=== PATIENT | female | born 1995 | race Caucasian/White ===

== ENCOUNTER 2019-05-18 18:13 | Inpatient (IN) ==
--- OUTSIDE RECORDS SUMMARY | 2019-05-18 18:19 | External Medical Summary | Continuity of Care Document ---
:1995 Author Name Mohamud Cortez, Provider Address Unavailable Unavailable , Care Team Providers Name Role Phone Marilyn Davis Unavailable [email or web address] Unavailable Unavailable Problems Active medical history not documented Allergies and Adverse Reactions Allergy history not documented Medications Medications not documented Procedures Procedures not documented Immunizations Immunizations not documented Plan of Treatment Planned Observations Planned Goals not documented Results No Known Results Results not documented Encounters Appointment; [facility], Nursing Station 11-May-2018 15:30 Encounter Diagnosis: Problem not documented Appointment; Marilyn Schilling CRNP 11-May-2018 16:00 Encounter Diagnosis: Problem not documented
[2019-05-18] MEDS ORDERED: OXYTOCIN 30 UNITS/500 ML BAG IV PRN (19:14)
[2019-05-18] MEDS ORDERED: DINOPROSTONE 10 MG INSERT PV ONE (19:30)
[2019-05-18 19:45] LABS: Hematocrit (blood only) 31.2 % (37-47); Mean Corpuscular Hemoglobin 25.4 pg (25-34); Mean Corpuscular Volume 79.4 fL (80-100); Mean Platelet Volume 9.8 fL (7.4-10.4); Platelet Count 211 K/uL (130-400); RDW Coefficient of Variation 15.2 % (11.5-14.5); RDW Standard Deviation 44.2 fL (36.4-46.3); Red Blood Count 3.93 M/uL (4.2-5.4); White Blood Count 10.95 K/uL (4.8-10.8)
[2019-05-18] MEDS: LACTATED RINGER'S 1,000 ML IV PRN (20:00)
[2019-05-18 20:12] LABS: Mean Corpuscular Hgb Conc 32.1 g/dL (32-36)
[2019-05-18] MEDS: BUTORPHANOL TARTRATE 1 MG/ML VIAL IV PRN (23:02)
[2019-05-19] MEDS: BUTORPHANOL TARTRATE 1 MG/ML VIAL IV PRN ×2 (04:25→15:49)
[2019-05-19] MEDS ORDERED: ONDANSETRON INJ 2 MG/ML 2 ML VIAL ONE (08:49)
[2019-05-19] MEDS: LACTATED RINGER'S 1,000 ML IV PRN ×2 (08:58→15:49)
[2019-05-19] MEDS: ONDANSETRON INJ 2 MG/ML 2 ML VIAL IV PRN ×2 (08:59→18:24)
--- NOTE | 2019-05-19 10:47 | Obstetrical Progress Note ---
Date of Service May 19, 2019 Physical Exam Genitourinary: OB Exam Abdomen: + irregular contractions Manual OB Exam: + cervical dilation 1 cm, + cervical effacement 50% and + station high OB Exam Monitor Tracing: + external uterine monitor used, + category I and + normal FHT variability will ambulate possible PO cytotec later for ripening Results & Data Vital Signs (Past 12 Hours) Vital Signs Temp Pulse Resp BP Pulse Ox 05/19/19 07:43 36.8 C 16 05/19/19 07:30 100 H 102/51 L 05/19/19 07:24 101 H 99 05/19/19 07:19 98 H 99 05/19/19 07:14 102 H 99 05/19/19 07:09 98 H 99 05/19/19 07:04 105 H 98 05/19/19 06:59 100 H 99 05/19/19 06:54 104 H 99 05/19/19 06:49 105 H 99 05/19/19 06:44 110 H 100 05/19/19 06:39 101 H 99 05/19/19 06:34 110 H 100 05/19/19 06:29 103 H 99 05/19/19 06:24 95 H 99 05/19/19 06:19 103 H 99 05/19/19 06:14 96 H 98 05/19/19 06:09 100 H 98 05/19/19 06:04 114 H 99 05/19/19 05:59 97 H 99 05/19/19 05:54 115 H 98 05/19/19 05:49 107 H 98 05/19/19 05:44 102 H 98 05/19/19 05:39 107 H 98 05/19/19 05:34 103 H 98 05/19/19 05:29 113 H 99 05/19/19 05:24 108 H 98 05/19/19 05:19 115 H 98 05/19/19 05:14 101 H 98 05/19/19 05:09 110 H 97 05/19/19 05:04 114 H 97 05/19/19 04:59 100 H 97 05/19/19 04:54 100 H 97 05/19/19 04:49 104 H 97 05/19/19 04:44 102 H 97 05/19/19 04:39 104 H 98/51 L 98 05/19/19 04:34 103 H 97 05/19/19 04:29 107 H 97 05/19/19 04:26 104 H 101/52 L 05/19/19 04:24 99 H 99 05/19/19 04:19 103 H 98 05/19/19 04:14 91 H 100 05/19/19 04:09 127 H 99 05/19/19 04:04 106 H 99 05/19/19 04:03 90 116/68 05/19/19 04:02 36.6 C 18 05/19/19 03:59 89 100 19 03:54 98 H 100 05/19/19 03:49 93 H 100 05/19/19 03:43 98 H 99 05/19/19 03:38 112 H 99 05/19/19 03:33 129 H 100 05/19/19 03:28 115 H 99 05/19/19 03:23 113 H 99 05/19/19 03:18 104 H 99 05/19/19 03:13 107 H 99 05/19/19 03:08 103 H 99 05/19/19 03:03 108 H 98 05/19/19 02:58 108 H 98 05/19/19 02:53 103 H 98 19 02:48 105 H 98 05/19/19 02:43 97 H 98 05/19/19 02:38 100 H 98 19 02:33 96 H 98 05/19/19 02:28 102 H 98 05/19/19 02:23 98 H 98 19 02:18 103 H 98 05/19/19 02:13 96 H 98 19 02:08 103 H 98 19 02:03 101 H 98 19 01:58 106 H 98 19 01:53 101 H 98 19 01:48 98 H 100 19 01:43 86 99 19 01:38 91 H 98 19 01:33 98 H 99 19 01:28 95 H 97 19 01:23 99 H 99 19 01:18 97 H 99 19 01:13 107 H 100 19 01:08 97 H 100 19 01:03 95 H 100 12/19/19 00:58 98 H 100 /19/19 00:53 101 H 99 19/19 00:48 93 H 100 /19/19 00:43 91 H 99 19/19 00:38 88 99 19/19 00:33 94 H 99 05/19/19 00:28 97 H 99 19/19 00:23 94 H 99 05/19/19 00:18 100 H 98 05/19/19 00:13 93 H 99 19/19 00:08 92 H 99 19/19 00:03 97 H 99 18/19 23:58 96 H 99 18/19 23:53 97 H 98 18/19 23:48 98 H 98 18/19 23:43 97 H 99 18/19 23:38 97 H 98 18/19 23:33 108 H 98 /18/19 23:28 106 H 99 /18/19 23:25 100 H 113/64 /18/19 23:23 99 H 98 /18/19 23:18 107 H 99 /18/19 23:13 100 H 98 12/18/19 23:08 104 H 99 /18/19 23:07 93 H 113/60 /18/19 23:06 37.0 C 18 /18/19 23:03 106 H 99 /18/19 22:58 88 99 /18/19 22:54 97 H 117/60 12/18/19 22:53 88 98
[2019-05-19] MEDS ORDERED: DINOPROSTONE 10 MG INSERT PV ONE (20:10)
--- NOTE | 2019-05-19 20:16 | Obstetrical Progress Note ---
Date of Service May 19, 2019 Physical Exam Genitourinary: OB Exam Abdomen: + vertex and + irregular contractions Manual OB Exam: + cervical dilation 1 cm, + cervical effacement 50% and + station high OB Exam Monitor Tracing: + external FHT monitor used, + external uterine monitor used, + category I and + normal FHT variability Cervidil 10 mg placed vaginally Results & Data Vital Signs (Past 12 Hours) Vital Signs Temp Pulse Resp BP 05/19/19 18:30 20 05/19/19 18:00 36.6 C 20 05/19/19 17:59 105 H 113/57 L 05/19/19 17:30 20 05/19/19 15:55 95 H 110/55 L 05/19/19 14:49 36.7 C 100 H 20 115/65 05/19/19 12:04 16 05/19/19 10:45 36.7 C 105 H 24 127/66
[2019-05-20] MEDS: LACTATED RINGER'S 1,000 ML IV PRN ×4 (00:23→15:00)
[2019-05-20] MEDS: miSOPROStoL 50 MCG TAB PO SCH ×2 (06:57→14:44)
[2019-05-20] MEDS: VENLAFAXINE HCL XR 75 MG CAPXR PO SCH (08:35)
--- NOTE | 2019-05-20 09:14 | Obstetrical Progress Note ---
Date of Service May 20, 2019 Subjective Patient is seen and examined She is known to me from office I have send her to L&D for IOL on 05/18 for borderline BPP 6/10 for 2 days She received 2 Cervidil's since then She feels ctxs on and off, pain is 5-6 /10 No LOF/VB +FM Reviewed her records GBS negative On Effexor 75 mg for depression h/o chlamydia in 1st trimester, treated KINJAL negative x2 No h/o HSV/ GC She seems painful VE:Cervidil was in lower vagina removed, 3/ 60%/ -2, bulging tight bag, AROM'ed FHR categ I [place] ctxs q 1-4 min Plan to monitor closely Epidural for pain, when she desires Results & Data Vital Signs (Past 12 Hours) Vital Signs Temp Pulse Resp BP 05/20/19 08:34 36.5 C 18 05/20/19 07:44 16 05/20/19 07:00 16 05/20/19 05:15 36.6 C 100 H 16 116/55 L 05/20/19 02:53 36.7 C 111 H 16 98/47 L 05/20/19 00:22 36.9 C 111 H 16 120/56 L 05/19/19 22:00 20 05/19/19 21:30 22
[2019-05-20] MEDS ORDERED: ePHEDrine sulfate 50 MG/ML AMP ONE (09:34)
[2019-05-20] MEDS ORDERED: fentaNYL citrate 100 MCG/2 ML VIAL ONE (09:34)
[2019-05-20] MEDS ORDERED: BUPIVACAINE 0.25% 30 ML VIAL ONE (09:34)
[2019-05-20] MEDS ORDERED: fentaNYL 2MCG/ML ROPIV 1.25MG/ML 100 ML BAG EPI ONE (09:35)
[2019-05-20] MEDS ORDERED: ePHEDrine sulfate 50 MG/ML AMP IV PRN (10:21)
[2019-05-20] MEDS ORDERED: NALOXONE HCL 1 MG in SODIUM CHLORIDE 0.9% 1000ML 1,000 ML IV PRN (10:21)
[2019-05-20] MEDS ORDERED: NALBUPHINE HCL INJ 10 MG/ML AMP IV PRN (10:21)
[2019-05-20] MEDS ORDERED: ONDANSETRON INJ 2 MG/ML 2 ML VIAL IV PRN (10:21)
[2019-05-20] MEDS ORDERED: PROMETHAZINE HCL 6.25 MG in SODIUM CHLORIDE 0.9% 50 ML IV PRN (10:21)
[2019-05-20] MEDS ORDERED: NALOXONE HCL 0.4 MG/1 ML VIAL/CARP IV PRN (10:21)
[2019-05-20] MEDS ORDERED: fentaNYL 2MCG/ML ROPIV 1.25MG/ML 100 ML BAG EPI PRN (10:21)
[2019-05-20] MEDS ORDERED: DiphenhydrAMINE HCL 50 MG/ML VIAL IV PRN (10:21)
--- NOTE | 2019-05-20 10:21 | Anesthesiology Consultation ---
Date of Service May 20, 2019 Assessment & Plan (1) Encounter for pre-operative examination: Chart Review Chart Review: Patient NOT seen in Pre Admission Testing and Acceptable Risk for Labor Epidural Consults Requested none ASA ASA2 Proposed Anesthesia Anesthesia Type: Labor Epidural Risk / Benefits Reviewed With: PT / POA / Parent / Guardian, Accepts Plan and Informed Consent Obtained History Height/Weight Height: 5 ft 5 in Weight: 58.967 kg Allergies Allergy/AdvReac Type Severity Reaction Status Date / Time No Known Allergies Allergy Verified 05/18/19 18:52 Medications Home Medications Medication Instructions Recorded Confirmed Last Taken PNV cmb#95-ferrous fumarate-FA 1 tab PO DAILY 05/18/19 05/18/19 05/18/19 07:00 [] venlafaxine 75 mg PO QAM 05/18/19 05/18/19 05/18/19 07:00 Active Medications Generic Name Dose Route Start Last Admin Trade Name Freq PRN Reason Stop Dose Admin Butorphanol Tartrate 1 mg 05/18/19 19:43 05/19/19 15:49 Stadol IV 06/17/19 19:42 1 mg Q2H PRN Administration Pain Lactated Ringer's 1,000 mls @ 125 mls/hr 05/18/19 19:14 05/20/19 10:04 Lr IV 05/20/19 19:13 999 mls/hr .Q8H PRN Administration L&D Protocol Protocol Misoprostol 50 mcg 05/19/19 14:30 05/20/19 06:57 Cytotec PO 06/18/19 14:29 Not Given Q4H ELISSA Ondansetron HCl 4 mg 05/19/19 08:44 05/19/19 18:24 Zofran IV 06/18/19 08:43 4 mg Q4H PRN Administration Nausea Venlafaxine HCl 75 mg 05/20/19 09:00 05/20/19 08:35 Effexor Extended Release PO 06/19/19 08:59 75 mg DAILY ELISSA Administration Past Medical History Medical History Depression Migraines Exercise / Class Metabolic Activity II 4-5 Yardwork/Stairs/Walk up hill Past Anesthesia History No Hx of Anesthesia Complications and No Family Hx of Anesthesia Complications History of PONV No Hx of PONV and No Hx of Motion Sickness Social History Smoking Status: Never smoker Do You Dip or Chew Tobacco: No Hx Alcohol Use: No Hx Substance Use: No substance use type: does not use Physical Exam Vital Signs Last Vital Signs Temp 36.5 C 05/20/19 08:34 Pulse 108 H 05/20/19 10:20 Resp 18 05/20/19 08:34 BP 126/60 05/20/19 10:20 Pulse Ox 96 05/20/19 10:19 ENMT Mouth: no dentition abnormality Thyromental Distance: > or= 3.5 Finger Breadths Mallampati Class: II Neck normal visual inspection Respiratory normal respiratory effort Auscultation: lungs clear to auscultation bilaterally Cardiovascular Rate/Rhythm: regular rate and regular rhythm Psychiatric Orientation: alert Testing Laboratory Results 05/18/19 19:25
[2019-05-20] MEDS ORDERED: OXYTOCIN 30 UNITS/500 ML BAG IV PRN ×2 (10:28→16:00)
--- NOTE | 2019-05-20 13:49 | Obstetrical Progress Note ---
Date of Service May 20, 2019 Subjective Late entry from 1330 Patient is comfortable now, received epidural VE: 7/ 70%/ 0, sagittal suture transverse FHR category I [place] ctxs q 2-3 min Continue to monitor closely Results & Data Vital Signs (Past 12 Hours) Vital Signs Temp Pulse Resp BP Pulse Ox 05/20/19 13:44 115 H 100 05/20/19 13:39 100 H 99 05/20/19 13:34 120 H 100 05/20/19 13:33 95 H 114/66 05/20/19 13:29 106 H 99 05/20/19 13:26 36.6 C 18 05/20/19 13:24 98 H 100 05/20/19 13:19 107 H 110/55 L 100 05/20/19 13:14 97 H 99 05/20/19 13:09 99 H 100 05/20/19 13:05 18 05/20/19 13:04 93 H 92/51 L 100 05/20/19 12:59 94 H 100 05/20/19 12:54 90 100 05/20/19 12:49 87 97 05/20/19 12:47 93 H 97/51 L 05/20/19 12:44 97 H 99 05/20/19 12:39 101 H 100 05/20/19 12:34 97 H 98 05/20/19 12:32 97 H 100/53 L 05/20/19 12:29 101 H 96 05/20/19 12:24 98 H 98 05/20/19 12:19 99 H 100 05/20/19 12:17 99 H 108/54 L 05/20/19 12:14 99 H 99 05/20/19 12:09 93 H 97 05/20/19 12:04 81 96 05/20/19 12:02 95 H 127/68 05/20/19 11:59 108 H 97 05/20/19 11:54 124 H 97 05/20/19 11:49 112 H 98 05/20/19 11:47 110 H 121/68 05/20/19 11:44 111 H 96 05/20/19 11:39 109 H 97 05/20/19 11:34 110 H 118/68 98 05/20/19 11:29 106 H 98 05/20/19 11:24 108 H 98 05/20/19 11:19 102 H 98 05/20/19 11:17 113 H 112/59 L 05/20/19 11:14 105 H 98 05/20/19 11:09 112 H 97 05/20/19 11:04 113 H 97 05/20/19 11:02 103 H 114/62 05/20/19 11:00 18 05/20/19 10:59 101 H 98 05/20/19 10:54 107 H 98 05/20/19 10:49 100 H 99 05/20/19 10:47 104 H 113/64 05/20/19 10:44 106 H 96 05/20/19 10:39 99 H 96 05/20/19 10:34 97 H 96 05/20/19 10:31 107 H 116/61 05/20/19 10:30 18 05/20/19 10:29 98 H 97 05/20/19 10:28 91 H 115/62 05/20/19 10:25 94 H 115/61 05/20/19 10:24 103 H 97 05/20/19 10:23 99 H 116/56 L 05/20/19 10:20 108 H 126/60 05/20/19 10:19 106 H 96 05/20/19 10:16 105 H 120/63 05/20/19 10:14 109 H 95 05/20/19 10:13 104 H 119/60 05/20/19 10:12 103 H 127/56 L 05/20/19 10:11 107 H 119/59 L 05/20/19 10:09 109 H 96 05/20/19 10:04 112 H 95 05/20/19 09:59 120 H 95 05/20/19 09:54 128 H 95 05/20/19 09:49 119 H 94 05/20/19 09:45 104 H 123/75 05/20/19 09:44 116 H 94 05/20/19 08:34 36.5 C 18 05/20/19 07:44 16 05/20/19 07:00 16 05/20/19 05:15 36.6 C 100 H 16 116/55 L 05/20/19 02:53 36.7 C 111 H 16 98/47 L
--- NOTE | 2019-05-20 14:46 | Obstetrical Progress Note ---
Date of Service May 20, 2019 Subjective Patient has been feeling pressure and wanted to push Pushed for 4 ctxs and head is at +2 FHR reassuring, good variability, mild early decels Continue to monitor Anticipate Results & Data Vital Signs (Past 12 Hours) Vital Signs Temp Pulse Resp BP Pulse Ox 05/20/19 14:39 118 H 99 05/20/19 14:35 112 H 88 L 05/20/19 14:34 99 H 99 05/20/19 14:32 111 H 123/85 05/20/19 14:29 117 H 99 05/20/19 14:24 121 H 99 05/20/19 14:19 122 H 100 05/20/19 14:17 104 H 120/69 05/20/19 14:14 126 H 99 05/20/19 14:09 108 H 100 05/20/19 14:04 118 H 99 05/20/19 14:03 115 H 122/77 05/20/19 13:59 112 H 99 05/20/19 13:54 110 H 100 05/20/19 13:49 110 H 100 05/20/19 13:47 114 H 129/76 05/20/19 13:44 115 H 100 05/20/19 13:39 100 H 99 05/20/19 13:34 120 H 100 05/20/19 13:33 95 H 114/66 05/20/19 13:29 106 H 99 05/20/19 13:26 36.6 C 18 05/20/19 13:24 98 H 100 05/20/19 13:19 107 H 110/55 L 100 05/20/19 13:14 97 H 99 05/20/19 13:09 99 H 100 05/20/19 13:05 18 05/20/19 13:04 93 H 92/51 L 100 05/20/19 12:59 94 H 100 05/20/19 12:54 90 100 05/20/19 12:49 87 97 05/20/19 12:47 93 H 97/51 L 05/20/19 12:44 97 H 99 05/20/19 12:39 101 H 100 05/20/19 12:34 97 H 98 05/20/19 12:32 97 H 100/53 L 05/20/19 12:29 101 H 96 05/20/19 12:24 98 H 98 05/20/19 12:19 99 H 100 05/20/19 12:17 99 H 108/54 L 05/20/19 12:14 99 H 99 05/20/19 12:09 93 H 97 05/20/19 12:04 81 96 05/20/19 12:02 95 H 127/68 05/20/19 11:59 108 H 97 05/20/19 11:54 124 H 97 05/20/19 11:49 112 H 98 05/20/19 11:47 110 H 121/68 05/20/19 11:44 111 H 96 05/20/19 11:39 109 H 97 05/20/19 11:34 110 H 118/68 98 05/20/19 11:29 106 H 98 05/20/19 11:24 108 H 98 05/20/19 11:19 102 H 98 05/20/19 11:17 113 H 112/59 L 05/20/19 11:14 105 H 98 05/20/19 11:09 112 H 97 05/20/19 11:04 113 H 97 05/20/19 11:02 103 H 114/62 05/20/19 11:00 18 05/20/19 10:59 101 H 98 05/20/19 10:54 107 H 98 05/20/19 10:49 100 H 99 05/20/19 10:47 104 H 113/64 05/20/19 10:44 106 H 96 05/20/19 10:39 99 H 96 05/20/19 10:34 97 H 96 05/20/19 10:31 107 H 116/61 05/20/19 10:30 18 05/20/19 10:29 98 H 97 05/20/19 10:28 91 H 115/62 05/20/19 10:25 94 H 115/61 05/20/19 10:24 103 H 97 05/20/19 10:23 99 H 116/56 L 05/20/19 10:20 108 H 126/60 05/20/19 10:19 106 H 96 05/20/19 10:16 105 H 120/63 05/20/19 10:14 109 H 95 05/20/19 10:13 104 H 119/60 05/20/19 10:12 103 H 127/56 L 05/20/19 10:11 107 H 119/59 L 05/20/19 10:09 109 H 96 05/20/19 10:04 112 H 95 05/20/19 09:59 120 H 95 05/20/19 09:54 128 H 95 05/20/19 09:49 119 H 94 05/20/19 09:45 104 H 123/75 05/20/19 09:44 116 H 94 05/20/19 08:34 36.5 C 18 05/20/19 07:44 16 05/20/19 07:00 16 05/20/19 05:15 36.6 C 100 H 16 116/55 L 05/20/19 02:53 36.7 C 111 H 16 98/47 L
[2019-05-20] MEDS ORDERED: BENZOCAINE 20% AER SPR 82.5 GM CAN EXT PRN (16:00)
[2019-05-20] MEDS ORDERED: MEASLES, MUMPS & RUBELLA VIRUS VIAL SQ ONE (16:00)
[2019-05-20] MEDS ORDERED: OXYCODONE/ACETAMINOPHEN 5mg/325mg TAB PO PRN (16:00)
[2019-05-20] MEDS ORDERED: SUPERCREAM 0.870% 15 GM JAR EXT PRN (16:00)
[2019-05-20] MEDS ORDERED: bisacodyL 10 MG SUPP PR PRN (16:00)
[2019-05-20] MEDS ORDERED: HYDROCORTISONE ACETATE 25 MG SUPP PR PRN (16:00)
[2019-05-20] MEDS ORDERED: DIPHTHERIA/TETANUS/PERTUSSIS 0.5 ML SYR/VIAL IM ONE (16:00)
[2019-05-20] MEDS: IBUPROFEN 600 MG TAB PO PRN (16:34)
--- NOTE | 2019-05-20 16:54 | Anesthesia Procedure Note ---
Date of Service May 20, 2019 Anesthesia Post Epidural Note Vital Signs Vital Signs: Temp Pulse Resp BP Pulse Ox 36.6 C 123 H 20 128/82 99 05/20/19 16:30 05/20/19 16:46 05/20/19 16:30 05/20/19 16:46 05/20/19 15:44 Pain Intensity Bilateral Lower Perineal: Pain Intensity: 4 Notes Mental Status: alert / awake / arousable Nausea / Vomiting: adequately controlled Pain: adequately controlled Airway Patency, RR, SpO2: stable & adequate BP & HR: stable & adequate Hydration State: stable & adequate Neuraxial Anesthesia: was administered and sensory block is resolving Anesthetic Complications: no major complications apparent and Pt Satisfied with anesthetic care Epidural: Removed without complications and With tip intact
[2019-05-20] MEDS ORDERED: DOCUSATE SODIUM 100 MG CAP ONE (19:07)
[2019-05-20] MEDS: ACETAMINOPHEN 325 MG TAB PO PRN (19:10)
[2019-05-20] MEDS: DOCUSATE SODIUM 100 MG CAP PO SCH (19:10)
--- NOTE | 2019-05-20 20:46 | Delivery Summary ---
DATE OF OPERATION: 05/20/2019 TIME OF DELIVERY OF BABY: 15:08 p.m. TIME OF DELIVERY OF PLACENTA: 15:33 p.m. DETAILS OF DELIVERY: The patient was found to be fully dilated and desired to push. She pushed for about 35 minutes and delivered the head without difficulty. Shoulders were delivered with minimal traction. Baby was handed off to the mother where mouth and nose were suctioned. Cord was clamped x2 and cut at 1 minute delay and then cord blood was obtained. Perineum and vagina were checked for lacerations. There were first degree labial lacerations and then a small first degree in the vagina close to the posterior fourchette. Those were repaired with 3-0 Vicryl in a running locked fashion. Excellent hemostasis was achieved. The placenta was found to be in the vagina, delivered spontaneous as intact and complete. Uterus was explored, found to be empty. Fundus was firm. EBL was 300 ml. Then vagina was checked for lacerations. There was an extension of the vaginal laceration into a second degree. It was repaired with 2-0 Vicryl in a running locked fashion and then vagina was oozing as we put the sutures and then multiple sutures were done and placed and then hemostasis was achieved. This repair was covered with Fawn powder to prevent further oozing and it was hemostatic. The fundus was firm. Mom and baby tolerated the procedure well. Sponge, lap, needle count was correct x2. Baby was a viable male , Apgars 8/9, weight was 3694 gr. No complications happened and I was present during whole procedure. I attest to the content of the Intraoperative Record and any orders documented therein. Any exceptions are noted below. MTDD
[2019-05-21] MEDS: IBUPROFEN 600 MG TAB PO PRN ×4 (00:43→22:21)
[2019-05-21 06:58] LABS: Hematocrit (blood only) 23.4 % (37-47); Hemoglobin 7.5 g/dL (12.0-16.0); Mean Corpuscular Hemoglobin 25.6 pg (25-34); Mean Corpuscular Hgb Conc 32.1 g/dL (32-36); Mean Corpuscular Volume 79.9 fL (80-100); Mean Platelet Volume 9.2 fL (7.4-10.4); Platelet Count 170 K/uL (130-400); RDW Coefficient of Variation 15.4 % (11.5-14.5); RDW Standard Deviation 45.1 fL (36.4-46.3); Red Blood Count 2.93 M/uL (4.2-5.4); White Blood Count 15.23 K/uL (4.8-10.8)
[2019-05-21] MEDS: PRENATAL VITAMIN 1 TAB PO SCH (08:37)
[2019-05-21] MEDS: FERROUS SULFATE 325 MG TAB PO SCH (08:37)
[2019-05-21] MEDS: DOCUSATE SODIUM 100 MG CAP PO SCH ×2 (08:37→20:08)
[2019-05-21] MEDS: VENLAFAXINE HCL XR 75 MG CAPXR PO SCH (08:43)
[2019-05-21] MEDS: ACETAMINOPHEN 325 MG TAB PO PRN ×2 (08:43→14:12)
--- NOTE | 2019-05-21 09:53 | Obstetrical Progress Note ---
Date of Service May 21, 2019 Assessment & Plan (1) normal course: PPD #1 Pt doing well Post anemia; Asymptomatic will monitor with today for symptoms with increase activity Repeat H/H AM anticipate disch. tomorrow Review of Systems Review of Systems: All systems reviewed & are unremarkable except as noted in HPI & below Physical Exam Constitutional: WD/WN, vitals as above well developed and well nourished Eyes: PERRL, conjunctivae normal, anicteric sclerae Neck: trachea midline, no thyromegaly Respiratory: normal respiratory effort, lungs clear to auscultation Auscultation: no crackles, no rales and no wheezes Cardiovascular: RRR, no murmur, no edema Gastrointestinal (Abdomen): normal bowel sounds, soft, nontender, no hepatosp lenomegaly Uterus is below umbilicus Musculoskeletal: no cyanosis or clubbing, extremities motor strength 5/5 Skin: no rashes, warm and dry Neurologic: patellar DTR's 2+ bilat, sensation intact Psychiatric: A+Ox3, euthymic affect Genitourinary: normal external appearance Results & Data Vital Signs (Past 12 Hours) Vital Signs Temp Pulse Resp BP 05/21/19 04:30 36.7 C 88 18 126/77 05/21/19 00:00 36.4 C L 91 H 18 125/78
[2019-05-21 19:16] LABS: Hematocrit (blood only) 24.7 % (37-47); Hemoglobin 7.8 g/dL (12.0-16.0)
[2019-05-21] MEDS ORDERED: bisacodyL 5 MG TABEC PO SCH (20:00)
[2019-05-22 06:40] LABS: Hematocrit (blood only) 24.1 % (37-47); Hemoglobin 7.6 g/dL (12.0-16.0)
[2019-05-22] MEDS: PRENATAL VITAMIN 1 TAB PO SCH (08:28)
[2019-05-22] MEDS: IBUPROFEN 600 MG TAB PO PRN (08:28)
[2019-05-22] MEDS: DOCUSATE SODIUM 100 MG CAP PO SCH (08:28)
[2019-05-22] MEDS: FERROUS SULFATE 325 MG TAB PO SCH (08:28)
--- NOTE | 2019-05-22 09:14 | Obstetrical Progress Note ---
Date of Service May 22, 2019 Assessment & Plan (1) normal course: PPD #2 pt doing well Post anemia; stable H/h asymptomatic will disch home on fe tabs with instructions Subjective Ambulation: ambulating normally Voiding: no voiding problems Passing Gas:: Yes Diet Tolerance:: regular diet Lochia:: Small Feeding Type:: breast feeding Review of Systems All systems reviewed & are unremarkable except as noted in HPI & below Physical Exam Constitutional WD/WN, vitals as above well developed and well nourished Eyes PERRL, conjunctivae normal, anicteric sclerae Neck trachea midline, no thyromegaly Respiratory normal respiratory effort, lungs clear to auscultation Auscultation: no crackles, no rales and no wheezes Cardiovascular RRR, no murmur, no edema Gastrointestinal (Abdomen) normal bowel sounds, soft, nontender, no hepatosplenomegaly Uterus is below umbilicus Musculoskeletal no cyanosis or clubbing, extremities motor strength 5/5 Skin no rashes, warm and dry Neurologic patellar DTR's 2+ bilat, sensation intact Psychiatric A+Ox3, euthymic affect Genitourinary normal external appearance Results & Data Vital Signs (Past 12 Hours) Vital Signs Temp Pulse Resp BP 05/21/19 23:43 36.6 C 82 18 122/73
== END 2019-05-22 12:30 | disposition home or self-care (01) | DRG 807 ==
LOC: 4S1 18:13 → 4S2 05-20 17:45

== ENCOUNTER 2024-09-01 07:42 | Inpatient (IN) ==
[2024-09-01] MEDS ORDERED: LIDOCAINE 1% LOCAL 20 ML VIAL INFIL PRN (07:51)
[2024-09-01] MEDS ORDERED: OXYTOCIN 30 UNITS/NSS 30 UNITS/500 ML BAG IV PRN ×2 (07:51→23:35)
--- NOTE | 2024-09-01 08:10 | History & Physical Report ---
Date of Service September 01, 2024 Assessment & Plan (1) Gestational diabetes: (2) Encounter for induction of labor: Plan Fetus category one. Plan pitocin induction. arom when appropriate. epidural as indicated. anticipate . Admission and Anticipated Discharge Date Admission Date: September 01, 2024 History of Present Illness Primary Care Provider: AIDA Becerra Patient is a 29yowf with iup at 39 3/7 weeks who presents for elective iol for hx of lga baby. Patient notes good fm. no significant contractions, lof/vb. complicated by diet controlled GDM, Rh- and Delivery Plans Rh neg -rhogam candidate -rhogam given 06/13/24 - ML prior LGA -consider 36wk Growth, consider 39wk IOL Hep B bld-[id number] vaccine IOL 09/01/24 with Kraft pyelectasis - mild, isolated EIF -pyelectasis resolved 32 wks Gestational Diabetes Growth u/s's q 4 weeks OB Labs: Blood Type A Negative 02/02/24 Antibody Screen NEGATIVE 06/13/24 Hgb 12.9 g/dl (12.0-16.0) 06/13/24 Hct 39.4 % (37.0-47.0) 06/13/24 MCV 88.7 fL (80.0-100.0) 02/02/24 Plt Count 271 K/uL (130-400) 02/02/24 Rubella IgG Antibody Immune (Immune) 02/02/24 Treponema pallidum Ab Negative (Negative) 06/13/24 Hep Bs Antigen Negative (Negative) 02/02/24 Hepatitis C Antibody Negative (Negative) 04/25/24 HIV 1&2 Ab/P24 Ag 4thGn Negative (Negative) 04/25/24 Glucose 1 Hr 50 gm 174 mg/dl (70-130) H 06/13/24 OB Optional Labs: Chlamydia trachomatis RNA Not Detected (NotDetected) 01/26/24 Neisseria gonorrhoeae RNA Not Detected (NotDetected) 01/26/24 Thyroid Stimulating Hormone (TSH) 1.351 uIu/ml (0.300-4.500) 10/07/23 gbs neg Allergies Allergy/AdvReac Type Severity Reaction Status Date / Time No Known Allergies Allergy Verified 08/31/24 13:21 Home Medications Medication Instructions Recorded Confirmed Type vit 168-iron 27 mg-folic See Protocol PO DAILY 09/03/23 08/31/24 History acid 800 mcg-omega3 235 mg capsule (One-A-Day -1) magnesium 1 tab PO DAILY 02/24/24 09/01/24 History aspirin [Baby Aspirin] PO DAILY 04/19/24 08/31/24 History breast pump #1 ea 06/10/24 08/31/24 Rx acetone (urine) test (Ketone Urine #50 ea 06/24/24 08/31/24 Rx Test strips) blood sugar diagnostic (OneTouch #150 ea 06/24/24 08/31/24 Rx Verio test strips) blood-glucose meter (OneTouch #1 ea 06/24/24 08/31/24 Rx Verio Reflect Meter) blood-glucose sensor (Dexcom G7 #3 ea 06/24/24 08/31/24 Rx Sensor device) fluoxetine 10 mg tablet 10 mg PO DAILY #30 tabs 06/24/24 09/01/24 Rx lancets 33 gauge (OneTouch Delica #150 ea 06/24/24 08/31/24 Rx Plus Lancet) blood-glucose sensor (FreeStyle #2 ea 06/29/24 08/31/24 Rx Xavier 3 Plus Sensor device) ondansetron 4 mg disintegrating 4 mg PO Q8H #20 tabs 08/31/24 08/31/24 Rx tablet Patient History Medical History Social anxiety disorder Major depressive disorder with single episode Suicidal ideation Depression Migraines Surgical History No pertinent past surgical history Family History Father Diabetes Grandmother (Paternal) Diabetes Mother Lupus Denies family history of Ovarian cancer Prostate cancer Myocardial infarction Breast cancer Colorectal cancer Social History Smoking Status: Never smoker Do You Dip or Chew Tobacco: No; Hx Alcohol Use: No Hx Substance Use: No Preferred Language: Estonian Communication Ability: Effective Hearing Ability: Normal Patent Counsel Required: No Beliefs That Will Affect Care: None marital status: Single marital status details: [place] (27) [phone] Current Living Situation: Parent, Family and Significant Other Current Living Situation Comment: Lives with FOB, son, 2 dogs, current occupational status: employed current occupation: [employer] Feels Safe at Home: Yes Diet: regular Diet Comment: GDM Assistive Devices: None OB History Past Pregnancies Del. Date GA wks Lbr Lgth wt Sex Type del Anes Place Del Prov ? Comment 05/20/19 41 8lb 2oz M Epidu ral [facility] [employer] History noncontributory Physical Exam Constitutional: WD/WN, vitals as above Cardiovascular: Extremities: no calf tenderness and no edema Gastrointestinal (Abdomen): soft, gravid, nt Psychiatric: A+Ox3, euthymic affect Genitourinary: cx--1-2/50/-2 toco--,oc ef,--140s with mod variability, accels to 170s, no decels Results & Data Vital Signs (Past 12 Hours) Vital Signs Pulse BP 09/01/24 07:53 100 H 110/64 Coding Level of Care Code None Diagnoses Gestational diabetes O24.419 Encounter for induction of labor Z34.90
[2024-09-01 08:28] LABS: Hematocrit (blood only) 33.6 % (37.0-47.0); Hemoglobin 10.9 g/dl (12.0-16.0); Mean Corpuscular Hemoglobin 26.1 pg (25.0-34.0); Mean Corpuscular Hgb Conc 32.4 g/dL (32.0-36.0); Mean Corpuscular Volume 80.6 fL (80.0-100.0); Mean Platelet Volume 10.1 fL (9.4-12.4); Platelet Count 186 K/uL (130-400); RDW Coefficient of Variation 13.8 % (11.5-14.5); RDW Standard Deviation 40.3 fL (36.4-46.3); Red Blood Count 4.17 M/uL (4.20-5.40); White Blood Count 6.37 K/ul (4.8-10.8)
[2024-09-01] MEDS: OXYTOCIN 30 UNITS/NSS 30 UNITS/500 ML BAG IV PRN (08:42)
[2024-09-01] MEDS: LACTATED RINGER'S 1,000 ML IV PRN (08:42)
[2024-09-01] MEDS: ONDANSETRON INJ 2 MG/ML 2 ML VIAL IV PRN (11:31)
[2024-09-01] MEDS: ACETAMINOPHEN 325 MG TAB PO PRN (11:32)
[2024-09-01] MEDS ORDERED: NALOXONE HCL 1 MG in SODIUM CHLORIDE 0.9% 1,000 ML IV PRN (13:13)
[2024-09-01] MEDS ORDERED: ROPIVACAINE 0.5% PF 5 MG/ML 20 ML VIAL EPI PRN (13:13)
[2024-09-01] MEDS ORDERED: NALBUPHINE HCL INJ 10 MG/ML AMP IV PRN (13:13)
[2024-09-01] MEDS ORDERED: ePHEDrine sulfate 50 MG/ML AMP IV PRN (13:13)
[2024-09-01] MEDS ORDERED: LIDOCAINE 2% MPF LOCAL 5 ML VIAL EPI PRN (13:13)
[2024-09-01] MEDS ORDERED: NALOXONE HCL 0.4 MG/1 ML VIAL/CARP IV PRN (13:13)
[2024-09-01] MEDS ORDERED: diphenhydrAMINE 50 MG/ML VIAL IV PRN (13:13)
--- NOTE | 2024-09-01 13:13 | Anesthesiology Consultation ---
Date of Service September 01, 2024 Assessment & Plan (1) Encounter for pre-operative examination: Chart Review Chart Review: Patient NOT seen in Pre Admission Testing and Acceptable Risk for Labor Epidural Consults Requested none History Height/Weight Height: 5 ft 6 in Weight: 59.874 kg Allergies Allergy/AdvReac Type Severity Reaction Status Date / Time No Known Allergies Allergy Verified 08/31/24 13:21 Medications Home Medications Medication Instructions Recorded Confirmed Last Taken vit 168-iron 27 mg-folic See Protocol PO DAILY 09/03/23 08/31/24 09/01/24 acid 800 mcg-omega3 235 mg capsule (One-A-Day -1) magnesium 1 tab PO DAILY 02/24/24 09/01/24 08/31/24 aspirin [Baby Aspirin] PO DAILY 04/19/24 08/31/24 09/01/24 breast pump #1 ea 06/10/24 08/31/24 Unknown acetone (urine) test (Ketone Urine #50 ea 06/24/24 08/31/24 Unknown Test strips) blood sugar diagnostic (OneTouch #150 ea 06/24/24 08/31/24 Unknown Verio test strips) blood-glucose meter (OneTouch #1 ea 06/24/24 08/31/24 Unknown Verio Reflect Meter) blood-glucose sensor (Dexcom G7 #3 ea 06/24/24 08/31/24 Unknown Sensor device) fluoxetine 10 mg tablet 10 mg PO DAILY #30 tabs 06/24/24 09/01/24 09/01/24 lancets 33 gauge (OneTouch Delica #150 ea 06/24/24 08/31/24 Unknown Plus Lancet) blood-glucose sensor (FreeStyle #2 ea 06/29/24 08/31/24 Unknown Xavier 3 Plus Sensor device) ondansetron 4 mg disintegrating 4 mg PO Q8H #20 tabs 08/31/24 08/31/24 Unknown tablet Active Medications Generic Name Dose Route Start Last Admin Trade Name Freq PRN Reason Stop Dose Admin Acetaminophen 650 mg 09/01/24 11:24 09/01/24 11:32 Acetaminophen 325 Mg Tab PO 10/01/24 11:23 650 mg Q4H PRN Administration Fever or headache Lactated Ringer's 1,000 mls @ 125 mls/hr 09/01/24 07:51 09/01/24 08:42 Lr IV 09/02/24 07:50 125 mls/hr .Q8H PRN Administration L&D Protocol Protocol Oxytocin 30 units in 500 mls @ 10 mls/hr 09/01/24 08:09 09/01/24 12:03 Pitocin 30 Units/Nss IV 09/03/24 08:08 0.6 units/hr .Q24H PRN 10 mls/hr Labor Induction/Augmentation Titration Protocol 0.6 UNITS/HR Ondansetron HCl 4 mg 09/01/24 11:24 09/01/24 11:31 Ondansetron Inj 2 Mg/Ml 2 Ml Vial IV 10/01/24 11:23 4 mg Q4H PRN Administration Nausea Past Medical History Medical History Social anxiety disorder Major depressive disorder with single episode Suicidal ideation Depression Migraines Past Family History Family History Father Diabetes Grandmother (Paternal) Diabetes Mother Lupus Denies family history of Ovarian cancer Prostate cancer Myocardial infarction Breast cancer Colorectal cancer Past Surgical History Surgical History No pertinent past surgical history Social History Smoking Status: Never smoker Do You Dip or Chew Tobacco: No Hx Alcohol Use: No Hx Substance Use: No substance use type: does not use Physical Exam Vital Signs Last Vital Signs Temp 98.1 F 09/01/24 11:00 Pulse 94 H 09/01/24 13:08 Resp 18 09/01/24 12:35 BP 113/66 09/01/24 12:59 Pulse Ox 98 09/01/24 13:08 Testing Laboratory Results 09/01/24 08:02 09/01/24 08:34 POC Glucose 107 H
[2024-09-01] MEDS: BUPIVACAINE 0.25% PF 30 ML VIAL ONE (13:35)
[2024-09-01] MEDS: fentaNYL citrate PF 100 MCG/2 ML VIAL ONE (13:35)
[2024-09-01] MEDS: ePHEDrine sulfate 50 MG/ML AMP ONE (13:37)
[2024-09-01] MEDS: fentANYL 2 MCG/ML BUPIVacaine 0.125%-NSS 100ML BAG ONE (13:41)
[2024-09-01] MEDS ORDERED: PHENYLEPHRINE 100MCG/ML 5ML SYR ONE (13:45)
[2024-09-01] MEDS: LIDOCAINE 2%/EPINEPHRINE 1:200,000 20 ML PF ONE (15:07)
[2024-09-01] MEDS: SODIUM CHLORIDE 0.9% PF INJ 10 ML VIAL ONE (15:07)
[2024-09-01] MEDS: ONDANSETRON INJ 2 MG/ML 2 ML VIAL IV STA (15:08)
[2024-09-01] MEDS: BUPIVACAINE 0.25% PF 30 ML VIAL EPI STA (15:47)
[2024-09-01] MEDS: fentaNYL citrate PF 100 MCG/2 ML VIAL EPI STA (15:48)
[2024-09-01] MEDS: SODIUM CHLORIDE 0.9% PF INJ 10 ML VIAL EPI STA (15:48)
[2024-09-01] MEDS: LIDOCAINE 2%/EPINEPHRINE 1:200,000 20 ML PF EPI STA (15:48)
[2024-09-01] MEDS ORDERED: NURSING L&D Epidural Breakthrough Pain Update ONE (16:43)
[2024-09-01] MEDS: fentaNYL citrate PF 100 MCG/2 ML VIAL EPI PRN (17:20)
[2024-09-01] MEDS: BUPIVACAINE 0.25% PF 30 ML VIAL EPI PRN (17:21)
--- NOTE | 2024-09-01 17:30 | Anesthesia Procedure Note ---
Date of Service September 01, 2024 Anesthesia Epidural Re-Dose Vital Signs Temp Pulse Resp BP Pulse Ox 97.9 F 77 18 91/50 L 99 09/01/24 17:02 09/01/24 17:23 09/01/24 17:02 09/01/24 17:20 09/01/24 17:23 Notes Pain Intensity: 5 Dilatation (cm): 2.0 Effacement (%): 75 Called by nursing to evaluate epidural as the patient is having increased pain. The epidural was re-dosed with the following medications (all medications via epidural route) after negative aspiration of the epidural catheter for CSF/HEME. 0.25% Bupivacaine (4ml) with 100 mcg Fentanyl After Epidural Re-Dose Mental Status: alert / awake / arousable Pain: improving with treatment Airway Patency, RR, SpO2: stable & adequate BP & HR: stable & adequate
--- NOTE | 2024-09-01 19:03 | Labor Progress Brief Note ---
Date of Service September 01, 2024 Subjective Reason For Note: Routine Evaluation Assessment & Plan (1) Encounter for induction of labor: Plan: Minimal progression noted. AROM for clear. Category 1 tracing. Continue oxyt ocin per regular protocol. Epidural in place and comfortable (2) Encounter for supervision of normal in multigravida, antepartum: (3) Gestational diabetes: Gestational diabetes mellitus control: diet-controlled Trimester: third trimester Qualified Code(s): O24.410 - Gestational diabetes mellitus in , diet controlled Admission and Anticipated Discharge Date Admission Date: September 01, 2024 Physical Exam Genitourinary: Manual OB Exam: + cervical dilation 2 cm, + cervical effacement 70% and 80%, + station -2 and + amniotic fluid (AROM) clear OB Exam Monitor Tracing: + external FHT monitor used, + external uterine monitor used, + category I and + normal FHT variability Results & Data Vital Signs (Past 12 Hours) Vital Signs Temp Pulse Resp BP Pulse Ox 09/01/24 14:58 82 98 09/01/24 14:53 82 98 09/01/24 14:48 91 H 98 09/01/24 14:47 83 97/56 L 09/01/24 14:43 106 H 99 09/01/24 14:38 110 H 97 09/01/24 14:33 102 H 97 09/01/24 14:30 16 09/01/24 14:30 16 09/01/24 14:28 104 H 97 09/01/24 14:26 91 H 18 101/54 L 09/01/24 14:23 98 H 97 09/01/24 14:22 84 18 102/53 L 09/01/24 14:18 102 H 100 09/01/24 14:16 107 H 18 105/55 L 09/01/24 14:13 96 H 98 09/01/24 14:11 95 H 97/53 L 09/01/24 14:08 93 H 99 09/01/24 14:06 88 94/51 L 09/01/24 14:03 89 97 09/01/24 14:01 80 18 95/50 L 09/01/24 13:58 86 98 09/01/24 13:55 87 103/50 L 09/01/24 13:54 95 H 20 101/58 L 09/01/24 13:53 93 H 100 09/01/24 13:52 100 H 100/58 L 09/01/24 13:50 100 H 18 103/56 L 09/01/24 13:48 90 98 09/01/24 13:47 71 103/58 L 09/01/24 13:45 110 H 95/50 L 09/01/24 13:44 96 H 18 88/53 L 09/01/24 13:43 95 H 96 09/01/24 13:42 101 H 18 100/51 L 09/01/24 13:40 96 H 18 103/53 L 09/01/24 13:38 97 09/01/24 13:38 104 H 09/01/24 13:38 105 H 18 110/57 L 09/01/24 13:36 89 87/52 L 09/01/24 13:34 96 H 18 96/54 L 09/01/24 13:33 95 H 96 09/01/24 13:32 93 H 106/58 L 09/01/24 13:30 98 H 20 107/64 09/01/24 13:28 90 117/67 98 09/01/24 13:23 103 H 100 09/01/24 13:18 91 H 99 09/01/24 13:13 92 H 97 09/01/24 13:08 94 H 98 09/01/24 13:03 97 H 99 09/01/24 12:59 86 18 113/66 09/01/24 12:58 85 100 09/01/24 12:35 91 H 18 99/58 L 09/01/24 11:00 36.7 C 82 20 99/55 L 09/01/24 10:15 81 18 97/58 L 09/01/24 09:28 93 H 18 107/63 09/01/24 08:44 90 18 107/62 09/01/24 07:59 36.5 C 20 09/01/24 07:53 100 H 110/64 Coding Level of Care Code None Diagnoses Encounter for induction of labor Z34.90 Encounter for supervision of normal in multigravida, antepartum Z34.80 Diet controlled gestational diabetes mellitus (GDM) in third trimester O24.410 Gestational diabetes mellitus control: diet-controlled Trimester: third trimester
[2024-09-01] MEDS: fentANYL 2 MCG/ML BUPIVacaine 0.125%-NSS 100ML BAG EPI PRN (19:55)
[2024-09-01] MEDS: SODIUM CHLORIDE 0.9% PF INJ 10 ML VIAL EPI PRN (22:46)
--- NOTE | 2024-09-01 22:47 | Anesthesia Procedure Note ---
Date of Service September 01, 2024 Anesthesia Epidural Re-Dose Vital Signs Temp Pulse Resp BP Pulse Ox 98.1 F 112 H 16 118/70 100 09/01/24 20:41 09/01/24 22:43 09/01/24 20:41 09/01/24 22:30 09/01/24 22:43 Notes Pain Intensity: 9 Dilatation (cm): 9.0 Effacement (%): 100 Called by nursing to evaluate epidural as the patient is having increased pain. The epidural was re-dosed with the following medications (all medications via epidural route) after negative aspiration of the epidural catheter for CSF/HEME. 0.125% Bupivacaine (8ml) with 100 mcg Fentanyl After Epidural Re-Dose Mental Status: alert / awake / arousable Pain: improving with treatment Airway Patency, RR, SpO2: stable & adequate BP & HR: stable & adequate
--- NOTE | 2024-09-01 23:34 | Delivery Summary ---
Vaginal Delivery Summary Date of Service September 01, 2024 Vaginal Delivery Summary and 1st Degree LAC Patient progressed to 10 cm dilated 100% effaced +2 station and pushed over intact perineum with epidural anesthesia and delivered a viable female with weight and Apgars pending. Head of the delivered without difficulty quickly followed by shoulders and body. was noted to be vigorous soon after delivery and a 1 minute delayed cord clamping was initiated. Cord then double clamped and cut remained on maternal abdomen. Cord blood obtained attention was turned deliver the placenta delivered intact three- vessel cord gentle cord traction. Inspection of perineum vagina cervix there is noted to be a small first-degree laceration which was repaired with a [id number] stitch. Needle sponge and instrument counts are correct at the completion of the case. Both mother and stable in the immediate post delivery timeframe. No complications noted and blood loss per QBL and chart [facility] Vaginal Delivery Charge Delivery Type Details: and 1st Degree LAC
[2024-09-01] MEDS ORDERED: bisacodyL 10 MG SUPP PR PRN (23:35)
[2024-09-01] MEDS ORDERED: HYDROCORTISONE ACETATE 25 MG SUPP PR PRN (23:35)
[2024-09-02] MEDS: miSOPROStoL 200 MCG TAB PR ONE (00:07)
[2024-09-02] MEDS: DIPHTHER/TETAN/PERTUS Vaccine (Tdap, Adol/Adult) 0.5mL IM ONE (00:07)
[2024-09-02] MEDS: BENZOCAINE 20% SPRY 85 APPLN/85 GM CAN EXT PRN (01:32)
[2024-09-02] MEDS: ACETAMINOPHEN 325 MG TAB PO PRN (02:41)
[2024-09-02] MEDS: IBUPROFEN 600 MG TAB PO PRN (05:00)
--- NOTE | 2024-09-02 06:20 | Obstetrical Progress Note ---
Date of Service September 02, 2024 Assessment & Plan (1) Gestational diabetes: (2) Encounter for care and examination after delivery: Plan Pt is 29 yo post- day 1 s/p at 40w. complicated by GDM, prior LGA, and Rh neg. - Encourage ambulation and breast feeding - Pain control with ibuprofen and tylenol - Likely DC 4/5 Admission and Anticipated Discharge Date Admission Date: September 01, 2024 Supervising Physician Co-Signing Physician Notes Patient seen with resident and agree with the above findings and plan. Doing well denying any concerns. Routine care Subjective Pt is 29 yo post- day 1 s/p at 40w. complicated by GDM, prior LGA, and Rh neg. Ambulation:In room Voiding:voiding normally Passing gas: yes BM: No Diet tolerance:regular diet Lochia:bloody, no clots Feeding type: breast Current pain level: 0-3 /10 improved with ibuprofen Resting comfortably this morning in NAD. Denies GONZALES, CP, SOB, N/V/D, LE pain/swelling. Review of Systems Review of Systems: As per HPI Physical Exam Constitutional: WD/WN, vitals as above Respiratory: normal respiratory effort, lungs clear to auscultation Cardiovascular: RRR, no murmur, no edema Gastrointestinal (Abdomen): normal bowel sounds, soft, nontender, no hepatosplenomegaly Uterine fundus firm and at 1cm below level of umbilicus Neurologic: PERRL, EOMI, accommodation nl, no face palsy, no dysarthria Moving all 4 extremities on command Psychiatric: A+Ox3, euthymic affect Results & Data Vital Signs (Past 12 Hours) Vital Signs Temp Pulse Pulse Resp BP BP Pulse Ox 09/02/24 03:00 36.8 C 72 16 109/67 97 09/02/24 01:32 36.9 C 18 09/02/24 01:32 97 H 124/60 09/02/24 01:17 104 H 117/59 L 09/02/24 01:02 16 09/02/24 01:02 83 123/59 L 09/02/24 00:32 18 09/02/24 00:32 90 115/62 09/02/24 00:17 16 09/02/24 00:17 100 H 114/66 09/02/24 00:02 16 09/02/24 00:02 103 H 112/75 09/01/24 23:48 16 09/01/24 23:48 100 H 113/78 09/01/24 23:32 36.8 C 18 09/01/24 23:32 93 H 09/01/24 23:32 93 H 142/58 H 94 09/01/24 23:28 96 H 98 09/01/24 23:23 104 H 98 09/01/24 23:19 123 H 125/70 09/01/24 23:18 128 H 98 09/01/24 23:15 99 H 129/63 09/01/24 23:13 111 H 99 09/01/24 23:09 218 H 119/58 L 09/01/24 23:08 132 H 99 09/01/24 23:05 109 H 158/71 H 09/01/24 23:03 100 H 100 09/01/24 23:00 101 H 133/70 09/01/24 22:58 92 H 98 09/01/24 22:56 100 H 94 09/01/24 22:53 98 09/01/24 22:53 85 09/01/24 22:53 107 H 115/62 09/01/24 22:51 92 09/01/24 22:51 98 H 09/01/24 22:51 82 117/67 09/01/24 22:50 16 09/01/24 22:50 16 09/01/24 22:49 85 112/65 09/01/24 22:48 104 H 100 09/01/24 22:47 36.8 C 121 H 18 114/66 09/01/24 22:45 115 H 131/70 09/01/24 22:43 112 H 100 09/01/24 22:38 98 H 99 09/01/24 22:33 88 100 09/01/24 22:30 80 118/70 09/01/24 22:29 95 H 92 09/01/24 22:28 97 H 95 09/01/24 22:23 99 H 100 09/01/24 22:18 99 H 97 09/01/24 22:16 92 H 94 09/01/24 22:15 81 119/61 09/01/24 22:13 92 H 96 09/01/24 22:08 95 H 96 09/01/24 22:03 76 98 09/01/24 22:00 76 125/72 09/01/24 21:58 82 96 09/01/24 21:56 110 H 94 09/01/24 21:53 76 98 09/01/24 21:48 99 H 97 09/01/24 21:44 150 H 114/81 09/01/24 21:43 111 H 97 09/01/24 21:38 89 98 09/01/24 21:33 101 H 98 09/01/24 21:32 79 93 09/01/24 21:29 82 109/72 09/01/24 21:28 77 98 09/01/24 21:23 82 96 09/01/24 21:18 72 98 09/01/24 21:14 68 103/67 09/01/24 21:13 76 96 09/01/24 21:08 77 99 09/01/24 21:03 86 98 09/01/24 21:00 76 101/66 09/01/24 20:58 81 97 09/01/24 20:53 75 98 09/01/24 20:48 83 98 09/01/24 20:45 81 109/55 L 09/01/24 20:43 99 09/01/24 20:43 92 H 09/01/24 20:43 82 91 09/01/24 20:41 16 09/01/24 20:41 36.7 C 16 09/01/24 20:38 76 99 09/01/24 20:33 98 H 97 09/01/24 20:29 96 H 94/51 L 09/01/24 20:28 97 H 98 09/01/24 20:23 85 96 09/01/24 20:18 90 96 09/01/24 20:15 75 99/58 L 09/01/24 20:13 80 97 09/01/24 20:08 73 99 09/01/24 20:03 82 98 09/01/24 20:00 71 97/53 L 09/01/24 19:58 81 100 09/01/24 19:53 73 97 09/01/24 19:48 89 98 09/01/24 19:44 81 93/52 L 09/01/24 19:43 83 99 09/01/24 19:38 74 99 09/01/24 19:33 73 99 09/01/24 19:29 74 103/52 L 09/01/24 19:28 71 99 09/01/24 19:23 74 99 09/01/24 19:18 70 99 09/01/24 19:13 62 100 09/01/24 19:08 75 98 09/01/24 19:03 69 97 09/01/24 19:01 36.6 C 15 09/01/24 19:00 78 91 09/01/24 18:59 64 101/55 L 09/01/24 18:58 70 96 09/01/24 18:53 67 96 09/01/24 18:48 69 96 09/01/24 18:46 98 H 131/63 09/01/24 18:43 120 H 97 09/01/24 18:38 73 98 09/01/24 18:33 72 97 09/01/24 18:30 77 107/64 09/01/24 18:28 73 99 09/01/24 18:23 79 97 09/01/24 18:18 70 96 O2 Del Method 09/02/24 03:00 Room Air 09/02/24 01:32 09/02/24 01:32 09/02/24 01:17 09/02/24 01:02 09/02/24 01:02 09/02/24 00:32 09/02/24 00:32 09/02/24 00:17 09/02/24 00:17 09/02/24 00:02 09/02/24 00:02 09/01/24 23:48 09/01/24 23:48 09/01/24 23:32 09/01/24 23:32 09/01/24 23:32 09/01/24 23:28 09/01/24 23:23 09/01/24 23:19 09/01/24 23:18 09/01/24 23:15 09/01/24 23:13 09/01/24 23:09 09/01/24 23:08 09/01/24 23:05 09/01/24 23:03 09/01/24 23:00 09/01/24 22:58 09/01/24 22:56 09/01/24 22:53 09/01/24 22:53 09/01/24 22:53 09/01/24 22:51 09/01/24 22:51 09/01/24 22:51 09/01/24 22:50 09/01/24 22:50 09/01/24 22:49 09/01/24 22:48 09/01/24 22:47 09/01/24 22:45 09/01/24 22:43 09/01/24 22:38 09/01/24 22:33 09/01/24 22:30 09/01/24 22:29 09/01/24 22:28 09/01/24 22:23 09/01/24 22:18 09/01/24 22:16 09/01/24 22:15 09/01/24 22:13 09/01/24 22:08 09/01/24 22:03 09/01/24 22:00 09/01/24 21:58 09/01/24 21:56 09/01/24 21:53 09/01/24 21:48 09/01/24 21:44 09/01/24 21:43 09/01/24 21:38 09/01/24 21:33 09/01/24 21:32 09/01/24 21:29 09/01/24 21:28 09/01/24 21:23 09/01/24 21:18 09/01/24 21:14 09/01/24 21:13 09/01/24 21:08 09/01/24 21:03 09/01/24 21:00 09/01/24 20:58 09/01/24 20:53 09/01/24 20:48 09/01/24 20:45 09/01/24 20:43 09/01/24 20:43 09/01/24 20:43 09/01/24 20:41 09/01/24 20:41 09/01/24 20:38 09/01/24 20:33 09/01/24 20:29 09/01/24 20:28 09/01/24 20:23 09/01/24 20:18 09/01/24 20:15 09/01/24 20:13 09/01/24 20:08 09/01/24 20:03 09/01/24 20:00 09/01/24 19:58 09/01/24 19:53 09/01/24 19:48 09/01/24 19:44 09/01/24 19:43 09/01/24 19:38 09/01/24 19:33 09/01/24 19:29 09/01/24 19:28 09/01/24 19:23 09/01/24 19:18 09/01/24 19:13 09/01/24 19:08 09/01/24 19:03 09/01/24 19:01 09/01/24 19:00 09/01/24 18:59 09/01/24 18:58 09/01/24 18:53 09/01/24 18:48 09/01/24 18:46 09/01/24 18:43 09/01/24 18:38 09/01/24 18:33 09/01/24 18:30 09/01/24 18:28 09/01/24 18:23 09/01/24 18:18 Resident Activity Tracking Resident Involvement: Resident Care Provided Care Provided: Adult Hospital Medicine (1) Gestational diabetes Gestational diabetes mellitus control: diet-controlled Trimester: third trimester Qualified Code(s): O24.410 - Gestational diabetes mellitus in , diet controlled
--- NOTE | 2024-09-02 06:23 | Anesthesia Procedure Note ---
Date of Service September 02, 2024 Anesthesia Post Epidural Note Vital Signs Vital Signs: Temp Pulse Resp BP Pulse Ox O2 Del Method 98.2 F 72 16 109/67 97 Room Air 09/02/24 03:00 09/02/24 03:00 09/02/24 03:00 09/02/24 03:00 09/02/24 03:00 09/02/24 03:00 Pain Intensity Bilateral Abdomen: Pain Intensity: 4 Notes Mental Status: alert / awake / arousable and participated in evaluation Nausea / Vomiting: adequately controlled Pain: adequately controlled Airway Patency, RR, SpO2: stable & adequate BP & HR: stable & adequate Hydration State: stable & adequate Neuraxial Anesthesia: was administered and sensory block is resolving Anesthetic Complications: no major complications apparent and Pt Satisfied with anesthetic care Epidural: Removed without complications and With tip intact
[2024-09-02] MEDS: PRENATAL VITAMIN 1 TAB PO SCH (08:06)
[2024-09-02] MEDS: FERROUS SULFATE 325 MG TAB PO SCH (08:06)
[2024-09-02] MEDS: DOCUSATE SODIUM 100 MG CAP PO SCH (08:06)
[2024-09-02] MEDS: FLUoxetine HCL 10 MG CAP PO SCH (08:22)
[2024-09-02 19:04] VITALS: O2SAT 96
[2024-09-02] MEDS: bisacodyL 5 MG TABEC PO SCH (19:52)
--- NOTE | 2024-09-03 05:59 | Obstetrical Progress Note ---
Date of Service September 03, 2024 Assessment & Plan (1) Gestational diabetes: (2) Encounter for care and examination after delivery: Plan Pt is 29 yo post- day 2 s/p at 40w. complicated by GDM, prior LGA, and Rh neg. - Encourage ambulation and breast feeding - Pain control with ibuprofen and tylenol - Continue fluoxetine 10mg po qd - DC today - Will follow up with Dr. Arroyo in 6 weeks Admission and Anticipated Discharge Date Admission Date: September 01, 2024 Supervising Physician Co-Signing Physician Notes Resident Physician Supervision Note: I interviewed and examined the patient. Discussed with Dr. Mckeon and agree with findings and plan as documented in the note. Any exceptions or clarifications are listed here: PP2 s/p , doing well. Stable fo dc home, s/p rhogam Documented By: Shanice Mckeon MD Subjective Pt is 29 yo post- day 2 s/p at 40w. complicated by GDM, prior LGA, and Rh neg. Ambulation:In and out of room Voiding:voiding normally Passing gas: yes BM: yes Diet tolerance:regular diet Lochia:bloody, no clots Feeding type: breast Current pain level: 1-3 /10 improved with ibuprofen/Tylenol Resting comfortably this morning in NAD. Denies GONZALES, CP, SOB, N/V/D, LE pain/swelling. Review of Systems Review of Systems: As per HPI Physical Exam Constitutional: WD/WN, vitals as above Respiratory: normal respiratory effort, lungs clear to auscultation Cardiovascular: RRR, no murmur, no edema Gastrointestinal (Abdomen): normal bowel sounds, soft, nontender, no hepatosplenomegaly Uterine fundus is firm and 2 cm below level of umbilicus Neurologic: PERRL, EOMI, accommodation nl, no face palsy, no dysarthria Psychiatric: A+Ox3, euthymic affect Results & Data Vital Signs (Past 12 Hours) Vital Signs Temp Pulse Pulse Resp BP Pulse Ox O2 Del Method 09/02/24 22:50 36.6 C 84 16 112/62 96 Room Air 09/02/24 19:03 36.8 C 85 16 110/61 96 Room Air Resident Activity Tracking Resident Involvement: Resident Care Provided Care Provided: Adult Hospital Medicine (1) Gestational diabetes Gestational diabetes mellitus control: diet-controlled Trimester: third trimester Qualified Code(s): O24.410 - Gestational diabetes mellitus in , diet controlled
[2024-09-03 10:07] VITALS: BP 109/66; PULSE 76; RESP 18; TEMP 97.7
== END 2024-09-03 11:15 | disposition home or self-care (01) | DRG 807 ==
LOC: 4S1 07:42 → 4E1 09-02 02:13
DX: Z67.11 Type A blood, Rh negative; Z3A.39 39 weeks gestation of pregnancy; O70.0 First degree perineal laceration during delivery; O26.899 Other specified pregnancy related conditions, unspecified trimester; Z37.0 Single live birth; O24.410 Gestational diabetes mellitus in pregnancy, diet controlled

== ENCOUNTER 2024-09-21 10:54 | Inpatient (IN) ==
[2024-09-21] MEDS: ONDANSETRON INJ 2 MG/ML 2 ML VIAL IV STA (11:20)
[2024-09-21 11:48] LABS: Basophils # (auto) 0.02 K/uL (0.00-0.20); Basophils % (auto) 0.2 %; Eosinophils # (auto) 0.03 K/uL (0.00-0.50); Eosinophils % (auto) 0.3 %; Hematocrit (blood only) 41.2 % (37.0-47.0); Hemoglobin 13.4 g/dl (12.0-16.0); Immature Granulocytes # (auto) 0.02 K/uL (0.01-0.20); Immature Granulocytes % (auto) 0.2 %; Lymphocytes # (auto) 1.52 K/uL (1.20-3.40); Mean Corpuscular Hgb Conc 32.5 g/dL (32.0-36.0); Mean Corpuscular Volume 79.8 fL (80.0-100.0); Mean Platelet Volume 10.5 fL (9.4-12.4); Monocytes # (auto) 0.34 K/uL (0.11-0.59); Monocytes % (auto) 2.9 %; Neutrophils # (auto) 9.77 K/uL (1.40-6.50); Neutrophils % (auto) 83.4 %; Platelet Count 368 K/uL (130-400); RDW Coefficient of Variation 16.5 % (11.5-14.5); RDW Standard Deviation 47.2 fL (36.4-46.3); Red Blood Count 5.16 M/uL (4.20-5.40)
[2024-09-21 12:13] LABS: Alanine Aminotransferase 92 U/L (7-52); Albumin Globulin Ratio 1.5 (0.9-2); Albumin Level 4.4 gm/dl (3.4-5.0); Alkaline Phosphatase 122 U/L (34-104); Anion Gap 8 (3-11); BUN Creatinine Ratio 18.7 (10-20); Bilirubin,Total 0.8 mg/dl (0.2-1.0); Blood Urea Nitrogen 14 mg/dl (6-23); Calcium 9.5 mg/dl (8.6-10.3); Carbon Dioxide 26 mmol/L (21-32); Chloride 104 mmol/L (98-107); Glucose 99 mg/dl (70-99(Fasting)); Sodium 138 mmol/L (136-145); Total Protein 7.4 gm/dl (6.0-8.3)
--- NOTE | 2024-09-21 12:55 | Emergency Department Note ---
Impression & Plan Vertigo, Nausea & vomiting ED Provider Note NAME: JOSE KELLY AGE: 29 SEX: F : 1995 ARRIVES VIA: Walk-In INFORMANT: Patient, ED PROVIDER(S): Wale Thurman MD CHIEF COMPLAINT: Vertigo, headache MEDICAL DECISION MAKING: Patient presents with the above. IV was established and blood work was obtained. Patient is not meningitic or encephalopathic. Patient is 3 weeks . Did discuss that the patient had no improvement in her symptoms after treatment we discussed getting a CT head and CTV in light of the patient's recent status. Blood work shows a white count of 11 with a normal hemoglobin. Platelet count is unremarkable normal kidney function and electrolytes. The patient does have mild transaminitis with an AST of 60 and an ALT of 92. Patient does not have evidence of low platelets or hemolysis. Not hypertensive. The patient was ordered IV fluids as well as IV Benadryl and Compazine dexamethasone and Toradol. Patient was reassessed and does feel improved the headache but still has vertigo. The patient was ordered Compazine and Benadryl as well as meclizine and additional IV fluids. Patient still with vertigo the patient was ordered CT head and CT venogram's. Patient also ordered IV Ativan. Upon subsequent reassessment the patient still feels as though she has some vertigo but is slightly improved. CT head and CT venogram negative. Patient did attempt an ambulatory trial but was unable to do so. Given the patient's persistent vertigo I did speak with the on-call hospital service Dr. Burton and the patient was admitted to medicine service. Discussion w/ other healthcare providers: Dr. Burton inpatient medicine service Prior /Outside records reviewed: None Differential diagnosis: Benign positional vertigo, dehydration, hypovolemia, anemia, infection, hypoglycemia, electrolyte abnormalities, arrhythmia, tox among others were considered. Diagnostics, as interpreted by me: ECG: Normal sinus rhythm, rate of 84, normal intervals, normal axis no ST elevations. Cardiac monitoring: An order was placed for continuous cardiac monitoring. The monitor shows a rate of 82 with sinus rhythm. Patient was placed on pulse oximetry Medical decision rules: None Imaging studies: I informally interpreted the patient's CT head does not show obvious ICH with formal report to follow. HPI: Patient presents due to concern for vertigo nausea and vomiting. The patient reports that her symptoms began about 2 days ago. The patient was seen in the OB clinic office and was prescribed Phenergan and Zofran. The patient states that she has only had mild improvement in symptoms. The patient states that she was not really doing anything at the time that her symptoms began she states that she got up to make dinner when she felt as though she was spinning. The patient did develop headache as well. Patient states that she has been taking ibuprofen and Tylenol at home but without significant improvement in symptoms and then had seen MEDICAL RECORDS SPECIALIST who prescribed her the additional antiemetics. Patient denies any falls or trauma. No numbness ting or focal weakness. Patient denies any chest pains or shortness of breath. No prior history of stroke or mini stroke. The patient is about 3 weeks . The patient is breast-feeding. PAST MEDICAL HISTORY: See Below PAST SURGICAL HISTORY: See Below SOCIAL HISTORY: See Below HOME MEDICATIONS: See Below ALLERGIES: See Below VITALS: See Below PHYSICAL EXAMINATION: GENERAL: Mildly uncomfortable but nontoxic in appearance. EYE EXAM: Normal conjunctiva. PERRL, no anisocoria and EOM's grossly intact w/o pain. Horizontal nystagmus noted. OROPHARYNX: Moist mucus membranes, grossly normal dentition. Braces in place. NECK: Trachea midline, no stridor. Supple, no nuchal rigidity, no adenopathy, non-tender. No signs of meningismus. FROM of the neck with good chin to chest and neck extension. LUNGS: Clear to auscultation. Normal chest wall mechanics. HEART: NSR, no MRG. ABDOMEN: Abdomen soft, non-tender, no masses, no rebound or guarding. BACK: No CVA TTP. SKIN: No rashes and no bruising. UPPER EXTREMITIES: Upper extremities are grossly normal. LOWER EXTREMITIES: Grossly normal, no edema. NEURO EXAM: A&O x3, cranial nerves II-XII grossly intact, normal speech, moves all 4 extremities. Good [id number], no drift and no sensory deficits. Past Med/Surg History Problem List (Updated 09/21/24 @ 18:10 by Wale Thurman MD) Nausea & vomiting (Acute) Vertigo (Acute) Depression Acute labyrinthitis Encounter for care and examination after delivery Encounter for induction of labor Gestational diabetes Pyelectasis of fetus on ultrasound Encounter for supervision of normal in multigravida, antepartum Encounter for anatomic survey Vitamin D deficiency Anxiety and depression Urinary symptom or sign normal course Encounter for pre-operative examination Medical History Asthma Childhood Social anxiety disorder Major depressive disorder with single episode Suicidal ideation Depression Migraines Surgical History No pertinent past surgical history Family History Father Diabetes Grandmother (Paternal) Diabetes Mother Lupus Denies family history of Ovarian cancer Prostate cancer Myocardial infarction Breast cancer Colorectal cancer Social History Smoking Status: Never smoker Do You Dip or Chew Tobacco: No; Hx Alcohol Use: No Hx Substance Use: No Preferred Language: Croatian Communication Ability: Effective Hearing Ability: Normal Breakfast Host Required: No Beliefs That Will Affect Care: None marital status: Single marital status details: [place] (27) [phone] Current Living Situation: Significant Other Current Living Situation Comment: Lives with FOB, son, 2 dogs, current occupational status: employed 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 Feels Safe at Home: Yes Diet: regular Diet Comment: GDM Assistive Devices: None Allergies Allergies Allergy/AdvReac Type Severity Reaction Status Date / Time No Known Allergies Allergy Verified 09/20/24 14:56 Home Meds Home Medications Medication Instructions Recorded Confirmed vit 168-iron 27 mg-folic 1 cap PO DAILY 09/03/23 09/21/24 acid 800 mcg-omega3 235 mg capsule (One-A-Day -1) magnesium 1 tab PO DAILY 02/24/24 09/21/24 Previous Rx's Medication Instructions Recorded breast pump #1 ea 06/10/24 fluoxetine 10 mg tablet 10 mg PO DAILY #30 tabs 06/24/24 ondansetron 4 mg disintegrating 4 mg PO Q8H #20 tabs 08/31/24 tablet promethazine 25 mg tablet 25 mg PO Q6H PRN nausea and 09/20/24 vomiting #14 tabs Results & Data (ED) Vital Signs Vital Signs - 24 hr 09/21/24 11:00 09/21/24 12:36 09/21/24 12:36 Temperature 36.6 C Temperature Source Temporal Artery Scan Pulse Rate 115 H Pulse Rate [Finger] 76 Pulse Rhythm [Finger] Pulse Strength [Finger] Respiratory Rate 18 18 Respiratory Effort / Characteristics Non-Labored Spontaneous Non-Labored Spontaneous Respiratory Depth Normal Normal Respiratory Pattern Regular Regular Blood Pressure 102/69 Blood Pressure [Left Arm] 98/64 L Blood Pressure Mean 80 Blood Pressure Mean [Left Arm] 75 Pulse Oximetry 100 100 100 Oxygen Delivery Method Room Air Room Air Room Air Sepsis Recent Fever Within 48 Hours No Sepsis New/Unexplained Change in Mental Status N/A Sepsis Action Taken by Nursing No Action Required 09/21/24 14:33 09/21/24 16:00 09/21/24 16:12 Temperature Temperature Source Pulse Rate 85 Pulse Rate [Finger] 78 82 Pulse Rhythm [Finger] Regular Pulse Strength [Finger] Normal Respiratory Rate 20 15 Respiratory Effort / Characteristics Non-Labored Spontaneous Respiratory Depth Normal Respiratory Pattern Regular Blood Pressure Blood Pressure [Left Arm] 98/64 L 110/70 Blood Pressure Mean Blood Pressure Mean [Left Arm] 75 83 Pulse Oximetry 100 98 Oxygen Delivery Method Room Air Sepsis Recent Fever Within 48 Hours Sepsis New/Unexplained Change in Mental Status Sepsis Action Taken by [facility] Medications Current Medication List: was personally reviewed by me Laboratory Data Attestation: I reviewed the patient's lab results. 09/21/24 11:22 09/21/24 12:58 Lab Results 09/21/24 09/21/24 Range/Units 11:22 12:58 WBC 11.70 H (4.8-10.8) K/ul RBC 5.16 (4.20-5.40) M/uL Hgb 13.4 (12.0-16.0) g/dl Hct 41.2 (37.0-47.0) % MCV 79.8 L (80.0-100.0) fL MCH 26.0 (25.0-34.0) pg MCHC 32.5 (32.0-36.0) g/dL RDW Std Deviation 47.2 H (36.4-46.3) fL RDW Coeff of Swapnil 16.5 H (11.5-14.5) % Plt Count 368 (130-400) K/uL MPV 10.5 (9.4-12.4) fL Immature Gran % (Auto) 0.2 % Neut % (Auto) 83.4 % Lymph % (Auto) 13.0 % [place] % (Auto) 2.9 % Eos % (Auto) 0.3 % Baso % (Auto) 0.2 % Neut # (Auto) 9.77 H (1.40-6.50) K/uL Lymph # (Auto) 1.52 (1.20-3.40) K/uL [place] # (Auto) 0.34 (0.11-0.59) K/uL Eos # (Auto) 0.03 (0.00-0.50) K/uL Baso # (Auto) 0.02 (0.00-0.20) K/uL Immature Gran # (Auto) 0.02 (0.01-0.20) K/uL Sodium 138 (136-145) mmol/L Potassium TNP 4.7 Chloride 104 (98-107) mmol/L Carbon Dioxide 26 (21-32) mmol/L Anion Gap 8 (3-11) BUN 14 (6-23) mg/dl Creatinine 0.75 (0.6-1.2) mg/dl Est Cr Clr Drug Dosing Not Reportable eGFR 111.14 BUN/Creatinine Ratio 18.7 (10-20) Glucose 99 (70-99(Fasting)) mg/dl Calcium 9.5 (8.6-10.3) mg/dl Total Bilirubin 0.8 (0.2-1.0) mg/dl AST TNP 60 H ALT 92 H (7-52) U/L Alkaline Phosphatase 122 H (34-104) U/L Total Protein 7.4 (6.0-8.3) gm/dl Albumin 4.4 (3.4-5.0) gm/dl Globulin 3.0 (2.5-4.0) gm/dl Albumin/Globulin Ratio 1.5 (0.9-2) Administered Medications Sodium Chloride (Nss) 1,000 mls @ 80 mls/hr IV .[id number] ELISSA Stop: 09/22/24 17:14 Last Admin: 09/21/24 17:19 Dose: 80 mls/hr Documented By: ASHLEY Discontinued Medications Dexamethasone Sodium Phosphate (DexamethasonePf 10 Mg/Ml Vial) 10 mg IV NOW ONE Stop: 09/21/24 13:08 Last Admin: 09/21/24 13:14 Dose: 10 mg Documented By: CASTRO Diphenhydramine HCl (Diphenhydramine 50 Mg/Ml Vial) 50 mg IV NOW STA Stop: 09/21/24 13:08 Last Admin: 09/21/24 13:15 Dose: 50 mg Documented By: CASTRO Sodium Chloride (Nss) 1,000 mls @ 999 mls/hr IV .Q1H1M ONE Stop: 09/21/24 14:07 Last Infusion: 09/21/24 15:08 Dose: Infused Documented By: Admin: 09/21/24 13:15 Dose: 999 mls/hr Documented By: CASTRO Sodium Chloride (Nss) 500 mls @ 999 mls/hr IV .Q31M ONE Stop: 09/21/24 14:31 Last Infusion: 09/21/24 15:08 Dose: Infused Documented By: Admin: 09/21/24 14:07 Dose: 999 mls/hr Documented By: CASTRO Ioversol (Optiray 320 100ml) 119 ml IV ONCE ONE Stop: 09/21/24 15:38 Last Admin: 09/21/24 15:37 Dose: 119 ml Documented By: CHINO Ketorolac Tromethamine (Ketorolac Tromethamine 15 Mg/Ml Vial) 10 mg IV NOW ONE Stop: 09/21/24 13:08 Last Admin: 09/21/24 13:14 Dose: 10 mg Documented By: CASTRO Lorazepam (Lorazepam 2 Mg/1 Ml Vial) 1 mg IV NOW STA Stop: 09/21/24 15:08 Last Admin: 09/21/24 15:15 Dose: 1 mg Documented By: ASHLEY Meclizine HCl (Meclizine Hcl 25 Mg Tab) 25 mg PO NOW STA Stop: 09/21/24 14:01 Last Admin: 09/21/24 14:06 Dose: 25 mg Documented By: CASTRO Ondansetron HCl (Ondansetron Inj 2 Mg/Ml 2 Ml Vial) 4 mg IV NOW STA Stop: 09/21/24 11:06 Last Admin: 09/21/24 11:20 Dose: 4 mg Documented By: ASHLEY Prochlorperazine (Prochlorperazine 5 Mg/Ml 2 Ml Vial) 10 mg IV NOW STA Stop: 09/21/24 13:08 Last Admin: 09/21/24 13:14 Dose: 10 mg Documented By: ARS Imaging Data Radiologist's Impression: Head CT 09/21/24 15:07 CT SCAN OF THE BRAIN WITHOUT IV CONTRAST CLINICAL HISTORY: Headache. Vertigo. COMPARISON STUDY: None. TECHNIQUE: Unenhanced axial CT scan of the brain was performed from the vertex to the skull base. A dose lowering technique was utilized adhering to the principles of ALARA. FINDINGS: Brain parenchyma: No acute intracranial hemorrhage, midline shift or mass effect is present. Waller-white matter differentiation is preserved. There are no extra- axial fluid collections. There are no findings to suggest acute dural sinus thrombosis or acute territorial infarct. Ventricles, sulci, cisterns: There is no hydrocephalus. The basal cisterns are patent. Calvarium: Unremarkable. Sinuses and mastoids: Incidental note is made of a 2.3 cm mucous retention cyst within the left maxillary sinus. The mastoid air cells are well pneumatized. Orbits: The bony orbits are grossly intact. IMPRESSION: No acute intracranial findings. ACT 112: Negative or not required by law. Electronically signed by: Salomon Junior M.D. 09/21/2024 3:[address] 09/21/24 15:07 CT head venogram w con HISTORY: 29 years-old Female vertigo, GONZALES acute vertigo with headache COMPARISON: Head CT of same day TECHNIQUE: CT venogram was obtained with IV contrast. A dose lowering technique was used consistent with the principals of ALARA. FINDINGS: The visualized intracranial structures appear unremarkable. 2.3 similar focus of polypoid mucosal thickening noted within the left maxillary sinus. The cerebral venous sinuses are patent without evidence of thrombus. The imaged internal jugular veins are also patent. The visualized opacified intracranial arterial structures appear unremarkable as well. There is no abnormal intracranial enhancement identified. IMPRESSION: Unremarkable CT venogram. ACT 112: Negative or not required by law. The above report was generated using voice recognition software. It may contain grammatical, syntax or spelling errors. Electronically signed by: Edmar Suarez M.D. 09/21/2024 3:47 PM Discharge Plan Visit Data Chief Complaint: Dizziness Stated Complaint: NAUSEA, VOMITING, DIZZY, HEADACHE ED Provider: Wale Thurman Discharge Problem: Vertigo, Nausea & vomiting Forms Stand Alone Forms: [employer] Prescriptions Prescriptions: No Action (DME) breast pump Device See Rx Instructions miscellaneous .MEDSUPPLY Qty: 1 0RF Rx Instructions: As directed One-A-Day -1 27 mg iron- 800 mcg-235 mg capsule 1 cap PO DAILY Protocol: TPA for Pulmonary Embolism Condition: Total Dose: Dose/Route: 100 Instruction: mg Condition: Infuse over: Dose/Route: 2 Instruction: hours Protocol Text: NURSING: Stop infusion immediately if abnormal bleeding, bruising, petichiae, or decline in neurologic status Flush TPA tubing with 50mL NSS after TPA vial empty promethazine 25 mg tablet 25 mg PO Q6H PRN (Reason: nausea and vomiting) Qty: 14 1RF magnesium Tablet 1 tab PO DAILY Rx Instructions: 500mg ondansetron 4 mg tablet,disintegrating 4 mg PO Q8H Qty: 20 2RF fluoxetine 10 mg tablet 10 mg PO DAILY Qty: 30 2RF Referrals Referrals: Alejandra Bourne CRNP [Primary Care Provider] - Discharge Problem: Nausea & vomiting Qualifiers: Vomiting type: unspecified Qualified Code(s): R11.2 - Nausea with vomiting, unspecified
[2024-09-21] MEDS: KETOROLAC TROMETHAMINE 15 MG/ML VIAL IV ONE ×2 (13:14→21:22)
[2024-09-21] MEDS: dexAMETHasone**PF** 10 MG/ML VIAL IV ONE (13:14)
[2024-09-21] MEDS: PROCHLORPERAZINE 5 MG/ML 2 ML VIAL IV STA (13:14)
[2024-09-21] MEDS: diphenhydrAMINE 50 MG/ML VIAL IV STA (13:15)
[2024-09-21] MEDS: SODIUM CHLORIDE 0.9% 1,000 ML IV ONE (13:15)
[2024-09-21 13:29] LABS: Potassium 4.7 mmol/L (3.5-5.1)
--- NOTE | 2024-09-21 13:39 | Electrocardiogram Report ---
Test Reason : Blood Pressure : */* mmHG Vent. Rate : 84 BPM Atrial Rate : 84 BPM P-R Int : 138 ms QRS Dur : 82 ms QT Int : 374 ms P-R-T Axes : 68 75 68 degrees QTcB Int : 441 ms Normal sinus rhythm RSR' or QR pattern in V1 suggests right ventricular conduction delay No previous ECGs available Confirmed by Vernon Bell ([id number]) on 09/21/2024 1:38:33 PM Referred By: Confirmed By: Vernon Bell
[2024-09-21] MEDS: MECLIZINE HCL 25 MG TAB PO STA (14:06)
[2024-09-21] MEDS: SODIUM CHLORIDE 0.9% 500 ML IV ONE (14:07)
[2024-09-21] MEDS: LORazepam 2 MG/1 ML VIAL IV STA (15:15)
[2024-09-21] MEDS: OPTIRAY 320 100ml IV ONE (15:37)
--- NOTE | 2024-09-21 15:46 | CT Scan Report ---
CT SCAN OF THE BRAIN WITHOUT IV CONTRAST CLINICAL HISTORY: Headache. Vertigo. COMPARISON STUDY: None. TECHNIQUE: Unenhanced axial CT scan of the brain was performed from the vertex to the skull base. A dose lowering technique was utilized adhering to the principles of ALARA. FINDINGS: Brain parenchyma: No acute intracranial hemorrhage, midline shift or mass effect is present. Waller-whi te matter differentiation is preserved. There are no extra-axial fluid collections. There are no find ings to suggest acute dural sinus thrombosis or acute territorial infarct. Ventricles, sulci, cisterns: There is no hydrocephalus. The basal cisterns are patent. Calvarium: Unremarkable. Sinuses and mastoids: Incidental note is made of a 2.3 cm mucous retention cyst within the left maxil sofya sinus. The mastoid air cells are well pneumatized. Orbits: The bony orbits are grossly intact. IMPRESSION: No acute intracranial findings. ACT 112: Negative or not required by law. Electronically signed by: Salomon Junior M.D. 09/21/2024 3:44 PM
--- NOTE | 2024-09-21 15:48 | CT Scan Report ---
CT head venogram w con HISTORY: 29 years-old Female vertigo, GONZALES acute vertigo with headache COMPARISON: Head CT of same day TECHNIQUE: CT venogram was obtained with IV contrast. A dose lowering technique was used consistent w ith the principals kim VAZQUEZ. FINDINGS: The visualized intracranial structures appear unremarkable. 2.3 similar focus of polypoid mucosal thi ckening noted within the left maxillary sinus. The cerebral venous sinuses are patent without evidence of thrombus. The imaged internal jugular vein s are also patent. The visualized opacified intracranial arterial structures appear unremarkable as w ell. There is no abnormal intracranial enhancement identified. IMPRESSION: Unremarkable CT venogram. ACT 112: Negative or not required by law. The above report was generated using voice recognition software. It may contain grammatical, syntax o r spelling errors. Electronically signed by: Edmar Suarez M.D. 09/21/2024 3:47 PM
--- NOTE | 2024-09-21 17:11 | History & Physical Report ---
Date of Service September 21, 2024 Assessment & Plan (1) Acute labyrinthitis: Plan: Probable cause of vertigo, nausea, vomiting. Scheduled methylprednisolone and oral meclizine. IV fluids. Nausea management as needed. (2) normal course: Plan: Supportive care (3) Depression: Plan: Fluoxetine is currently on hold Plan Hopeful discharge back to her home within the next day or 2 History of Present Illness Chief Complaint: Vertigo, nausea, vomiting Primary Care Provider: AIDA Becerra 29-year-old white female who is 3 weeks . She developed vertigo with nausea and vomiting 2 days ago without associated trauma. She was treated in the ED and head CT scan and head venogram CT scan are negative. Liver function enzymes are mildly elevated. EKG is normal. This appears to be acute labyrinthitis causing the vertigo and she will be treated accordingly. She is placed in observation for further management Allergies Allergy/AdvReac Type Severity Reaction Status Date / Time No Known Allergies Allergy Verified 09/20/24 14:56 Home Medications Medication Instructions Recorded Confirmed Type vit 168-iron 27 mg-folic 1 cap PO DAILY 09/03/23 09/21/24 History acid 800 mcg-omega3 235 mg capsule (One-A-Day -1) magnesium 1 tab PO DAILY 02/24/24 09/21/24 History breast pump #1 ea 06/10/24 09/20/24 Rx fluoxetine 10 mg tablet 10 mg PO DAILY #30 tabs 06/24/24 09/21/24 Rx ondansetron 4 mg disintegrating 4 mg PO Q8H #20 tabs 08/31/24 09/21/24 Rx tablet promethazine 25 mg tablet 25 mg PO Q6H PRN nausea and 09/20/24 09/21/24 Rx vomiting #14 tabs Past Med/Surg History Problem List (Updated 09/21/24 @ 17:10 by Peter Burton MD) Depression Acute labyrinthitis Encounter for care and examination after delivery Encounter for induction of labor Gestational diabetes Pyelectasis of fetus on ultrasound Encounter for supervision of normal in multigravida, antepartum Encounter for anatomic survey Vitamin D deficiency Anxiety and depression Urinary symptom or sign normal course Encounter for pre-operative examination Medical History Asthma Childhood Social anxiety disorder Major depressive disorder with single episode Suicidal ideation Depression Migraines Surgical History No pertinent past surgical history Family History Father Diabetes Grandmother (Paternal) Diabetes Mother Lupus Denies family history of Ovarian cancer Prostate cancer Myocardial infarction Breast cancer Colorectal cancer Social History Smoking Status: Never smoker Do You Dip or Chew Tobacco: No; Hx Alcohol Use: No Hx Substance Use: No Preferred Language: Polish Communication Ability: Effective Hearing Ability: Normal Husbandry Person Required: No Beliefs That Will Affect Care: None marital status: Single marital status details: [place] (26) [phone] Current Living Situation: Significant Other Current Living Situation Comment: Lives with FOB, son, 2 dogs, current occupational status: employed 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 No diarrhea, melena, hematochezia GUno urinary retention, no urinary incontinence, no dysuria, no hematuria Musculoskeletalno joint pain, no muscle tenderness Skinno bruising, no rashes, no pruritus Neurono isolated weakness, no paresthesia. Vertigo symptoms with head movement Psychflat affect currently Physical Exam 2 Physical Exam: General-alert and oriented x3, no fever, no chills. She looks ill due to the vertigo and nausea HEENT-head atraumatic and normocephalic, pupils equal and reactive to light, extraocular muscles intact. She does exhibit rotary nystagmus of both eyes Neck-no lymphadenopathy or thyromegaly, trachea midline Chest-clear to auscultation. No rales, wheezing or rhonchi Cardiac-regular rate and rhythm, normal S1 and S2 Abdomen-normal bowel sounds, no hepatosplenomegaly Extremities-no cyanosis, clubbing, or edema Neuro-cranial nerves II through XII intact, motor and sensory function within normal limits, strength symmetrical, no focal deficits. She has rotary nystagmus of both eyes Psych-flat affect Results & Data Results & Data Vital Signs (Past 12 Hours) Vital Signs Temp Pulse Pulse Resp BP BP Pulse Ox 09/21/24 16:12 85 09/21/24 16:00 82 15 110/70 98 09/21/24 14:33 78 20 98/64 L 100 09/21/24 12:36 100 09/21/24 12:36 76 18 98/64 L 100 09/21/24 11:00 36.6 C 115 H 18 102/69 100 O2 Del Method 09/21/24 16:12 09/21/24 16:00 Room Air 09/21/24 14:33 09/21/24 12:36 Room Air 09/21/24 12:36 Room Air 09/21/24 11:00 Room Air Laboratory Results 09/21/24 11:22 09/21/24 12:58 Code Status & VTE Plan Code Status Full code PG Care Time/CCT Total # of Minutes Spent Total Time Spent with Patient: Total time spent is greater than 50% in coordination of care (as documented) at patient's floor/unit and/or counseling patient: Coding Level of Care Code 35431 INT INP/OBS CARE 3/75MIN Diagnoses Acute labyrinthitis H83.09 normal course Z39.2 Depression F32.A
[2024-09-21] MEDS: SODIUM CHLORIDE 0.9% 1,000 ML IV SCH ×2 (17:19→19:32)
[2024-09-21] MEDS ORDERED: methylPREDNISolone 10 mg/mL (For Ped Dose < 7mg) IV SCH (18:31)
[2024-09-21] MEDS: methylPREDNISolone 40 MG in SYRINGE 0 ML IV SCH (19:31)
[2024-09-21] MEDS: ACETAMINOPHEN 325 MG TAB PO PRN (19:42)
[2024-09-21] MEDS: MECLIZINE 12.5 MG TAB PO SCH (21:00)
[2024-09-22 07:39] LABS: Appearance Urine Clear (Clear); Bacteria Urine Automated None Seen (None Seen); Bilirubin Urine Negative (Negative); Blood Urine 1+ (Negative); Cast Urine Automated 0-2 /lpf (0-2); Color Urine Yellow; Epithelial Cell Urine Auto 0-2 /hpf (0-2); Glucose Urine UA Negative (Negative); Ketones Urine 3+ (Negative); Leukocyte Esterase Urine Negative (Negative); Nitrite Urine Negative (Negative); Protein Urine Trace (Negative); RBC Urine Automated 0-2 /hpf (0-2); Specific Gravity Urine > 1.045 (1.000-1.030); Urobilinogen Urine Negative (Negative); WBC Urine Automated 0-5 /hpf (0-5)
[2024-09-22] MEDS: ONDANSETRON INJ 2 MG/ML 2 ML VIAL IV PRN (08:23)
[2024-09-22] MEDS: LACTATED RINGER'S 1,000 ML IV ONE (09:13)
[2024-09-22 10:36] LABS: Hematocrit (blood only) 37.3 % (37.0-47.0); Mean Corpuscular Hemoglobin 26.1 pg (25.0-34.0); Mean Corpuscular Hgb Conc 32.2 g/dL (32.0-36.0); Mean Corpuscular Volume 81.1 fL (80.0-100.0); Mean Platelet Volume 10.6 fL (9.4-12.4); Platelet Count 359 K/uL (130-400); RDW Coefficient of Variation 16.7 % (11.5-14.5); RDW Standard Deviation 48.6 fL (36.4-46.3)
[2024-09-22 10:53] LABS: Immature Granulocytes # (auto) 0.06 K/uL (0.01-0.20); Immature Granulocytes % (auto) 0.4 %; Lymphocytes # (auto) 0.98 K/uL (1.20-3.40); Lymphocytes % (auto) 6.9 %; Monocytes # (auto) 0.11 K/uL (0.11-0.59); Monocytes % (auto) 0.8 %; Neutrophils # (auto) 13.15 K/uL (1.40-6.50); Neutrophils % (auto) 91.9 %
[2024-09-22 11:13] LABS: Albumin Globulin Ratio 1.4 (0.9-2); Albumin Level 3.6 gm/dl (3.4-5.0); Bilirubin,Total 0.5 mg/dl (0.2-1.0); Calcium 8.8 mg/dl (8.6-10.3); Creatinine Clr Calc Pharmacy 114.4 ml/min; Globulin 2.5 gm/dl (2.5-4.0); Potassium 3.9 mmol/L (3.5-5.1); Total Protein 6.1 gm/dl (6.0-8.3)
[2024-09-22] MEDS: GADOBUTROL 65ML VIAL IV ONE (11:59)
[2024-09-22] MEDS: ACYCLOVIR SOD IV SCH (12:13)
[2024-09-22] MEDS: DEXTROSE 5% IV SCH (12:13)
--- NOTE | 2024-09-22 12:16 | Magnetic Resonance Report ---
MRI OF THE BRAIN COMBO CLINICAL HISTORY: Headache. Vertigo. Blurry vision. 3 weeks . COMPARISON STUDY: Head CT and CT venogram of the head September 21, 2024. TECHNIQUE: MRI of the brain was performed utilizing various T1 and T2-weighted sequences in the axial , sagittal, and coronal planes. Contrast-enhanced sequences were acquired following the administratio n of Gadavist. FINDINGS: Brain parenchyma: Evaluation of the anterior bilateral temporal and frontal lobes is compromised by s usceptibility artifact related to braces. There are no foci of restricted diffusion to suggest acute infarct. No acute intracranial hemorrhage, midline shift or mass effect is present. There is no intra cranial mass or pathologic enhancement. There is no significant parenchymal signal abnormality. Ventricles, sulci, and cisterns: There is no hydrocephalus. The basal cisterns are patent. There are no extra-axial collections. Pituitary and sella: Unremarkable. Intracranial vasculature: Flow-voids for the major intracranial vessels are present. Orbits: The orbits are largely obscured by artifact. Sinuses and mastoids: The sinuses are partially obscured by artifact. Calvarium: No calvarial lesions are identified. Cervical cord: Partially visualized cervical spinal cord is normal in morphology and signal intensity . IMPRESSION: 1. No acute intracranial findings. 2. No intracranial mass or pathologic enhancement. 3. Evaluation of the anterior bilateral temporal and frontal lobes moderately compromised by suscepti bility artifact related to braces. ACT 112: Negative or not required by law. Electronically signed by: Salomon Junior M.D. 09/22/2024 12:15 PM
--- NOTE | 2024-09-22 12:38 | Hospitalist Progress Note ---
Date of Service September 22, 2024 Assessment & Plan (1) Acute labyrinthitis: Plan: Kavita is a 29-year-old female recently with delivery 3 weeks ago C/B epidural which reportedly took 3 separate attempts with some difficulty placing but who subsequently did well who presents for headache, severe vertigo, nausea for 3 days. She reports that between delivery and her presentation she did not have any headache and was generally doing well. She has had recent development of a cold sore at her left lip in the last 24-48 hours. Differential includes labyrinthitis/, viral meningitis, and late onset of post epidural headache. She was without toxic appearance/fever/nuchal rigidity on admission with low suspicion for bacterial meningitis. Headache, vertigo. Was admitted for suspected labyrinthitis and treated with Toradol, meclizine, steroids. Patient has had some but relatively minimal improvement with this and remains very symptomatic with additional blurry vision and persistent headache. She has not been hypertensive or overtly encephalopathic suggestive of press/preeclampsia further evaluation as noted CT venogram without acute findings, head CT without acute finding - DDx includes delayed post epidural headache and meningitis Patient with 3-4 days of headache, vertigo with associated nausea and 1 episode of vomiting Does have some positional component with improvement when laying flat. She did have 3 attempts at a epidural with her delivery 3 weeks ago however was headache free between discharge and up until her acute symptoms which began approximately 09/19. Endorses left lower lip pain and small vesicle which is new in the last 24-48 hours consistent with prior HSV outbreaks. Given mild transaminitis, persistent/worsening headache, acute cold sore development, and increased risk due to recent status HSV encephalitis is within the differential. DDx also includes viral labyrinthitis although visual changes and degree of headache is atypical for this, and post epidural headache given 3 times at this and positional improvement however somewhat atypical to have had almost 3 weeks symptom-free prior to onset of symptoms. MRI with and without contrast obtained to evaluate for temporal enhancement. No acute findings although limited by artifact from braces Did discuss with neurology. Will obtain IR guided LP to further evaluate for possible viral meningitis. If this is negative and symptoms are persistent then can treat symptomatically versus follow-up with anesthesia for potential blood patch for delayed post epidural headache Empiric Acyclovir continued 10mpk every 8 hours continued. Does not have nuchal rigidity, fever, or toxic appearance suspicious for bacterial meningitis. Did have a minimal leukocytosis suspect to be demargination post vomiting, and mild leukocytes today in context of steroids given on admission but remains afebrile, without nuchal rigidity, and without a toxic appearance. Transaminitis DDx includes poor perfusion with hypotension, vomiting and poor p.o. intake [employer] OFFIC[employer]. Also includes potential HSV due to cold sore outbreak and at risk status however rise was minimal and downtrending on recheck post fluids No obstructive pattern, bili is normal No postprandial/right upper quadrant/epigastric pain Trend CMP Cold sore outbreak With history of HSV and evaluation as above. If meningitis evaluation is negative then can transition back to her oral acyclovir for acute outbreak. DVT prophylaxis: Ambulate/SCDs. Chemical prophylaxis held pending LP Diet: N.p.o. at midnight CODE STATUS: Full code (2) normal course: (3) Depression: Admission and Anticipated Discharge Date Admission Date: September 21, 2024 Kanu Walls seen at the bedside. She reports that she continues to have a headache with bilateral blurry vision which improves slightly when she covers her right eye. Headache is mostly top/frontal. Anytime she moves her head she has severe spinning which causes nausea and she had 1 episode of vomiting from this yesterday. This does improve with Zofran. She denies sinus congestion and cough. Denies fever and chills. She does endorse that she has some tightness on the back right side of her neck, although was able to flex her neck without significant pain or difficulty. Laying flat does slightly improve her headache. Moving her head worsens both her headache and her vertigo. She think she feels possibly a little bit better than yesterday but overall has not noticed a significant change since being started on methylprednisolone/meclizine. Has had significant improvement with Zofran to her nausea. Physical Exam Physical Exam: General: Appears fatigued, ill but nontoxic. HEENT/neuro:atraumatic, normocephalic. Endorses blurry vision which improves but does not resolve when right eye is covered. Pupils equal and reactive to light. At far bilateral peripheral gaze does have horizontal nystagmus which persists for 5-7 seconds.Moves all extremities equally. Sensation intact hands and feet bilaterally without asymmetry. Fresh Meat Grader strength, hip flexion, ankle dorsiflexion/plantarflexion 5/5 bilaterally Pulm: CTAB A&P. -wheezes, -rales, -rhonchi. Symmetrical chest rise. No increased work of breathing. No respiratory distress. Cardiac: RRR, -mrg. Radial pulses intact and symmetrical. Abdominal: Nontender, nondistended, soft. BS present. Back: No warmth, tenderness, fluctuance or discomfort on lumbar spinal palpation. No signs of swelling, hematoma, or infection at her prior epidural site. Results & Data Results & Data Vital Signs (Past 12 Hours) Vital Signs Temp Pulse Resp BP Pulse Ox O2 Del Method 09/22/24 12:11 36.6 C 85 16 101/62 95 Room Air 09/22/24 07:43 36.6 C 73 16 96/57 L 96 Room Air PG Care Time/CCT Total # of Minutes Spent Total Time Spent with Patient: Total time spent is greater than 50% in coordination of care (as documented) at patient's floor/unit and/or counseling patient: Coding Level of Care Code 93371 SUB INP/OBS CARE 3/50MIN Diagnoses Acute labyrinthitis H83.09 normal course Z39.2 Depression F32.A
--- NOTE | 2024-09-22 17:20 | Neurology Consultation ---
Date of Consultation September 22, 2024 Assessment & Plan (1) Vertigo: (2) Nystagmus: (3) Clinically isolated syndrome of brainstem: Plan 29-year-old female, 3 weeks , with refractory vertigo, nystagmus, vertical nystagmus, headache, signs and symptoms seem to localize to the brainstem, could be having a clinically isolated syndrome in the period. Patient's brain MRI is fairly unremarkable although technically limited due to metallic artifact from her braces. There is a single focus of FLAIR hyperintensity within the white matter of the frontal lobe. No obvious lesions within the brainstem, however. The differential diagnosis could also include viral labyrinthitis. She does not complain of ear pain, tinnitus, or hearing loss, however. No obvious evidence of stroke or hemorrhage on her imaging. No evidence of cerebral venous thrombosis with CT venography. Could also consider either a cervical vertebral or carotid artery dissection. Agree with lumbar puncture as ordered. Would add MS panel, as well as meningoencephalitis panel. Would obtain either a CTA of the neck and head or MRA of the neck and head as well, to further exclude arterial dissection as above. Would recommend treatment with methylprednisolone in the context of possible clinically isolated syndrome. Would give 1000 mg IV x 1. Follow with Medrol Dosepak taper. Continue symptomatic treatment of vertigo with meclizine. May use Valium if necessary. May address nausea with antiemetics, either ondansetron or Compazine. Going forward, patient will need additional outpatient neurology follow-up for ongoing clinical monitoring. Would check an ESR, CRP, Lyme screen, NIMA screen, ANCA, angiotensin-converting enzyme History of Present Illness Reason for Consultation: vertigo, nystagmus, headache Requesting Physician: Mabel Attending Physician: Luke Monroe MD History of Present Illness The patient is a 29-year-old female, 3 weeks , presenting with refractory vertigo and low to medium grade right sided head pressure that began 4 days ago. The vertigo is worse with sitting and standing up, and worse with head turn. She perceives some blurry vision as well. No ear pain or tinnitus. Denies any recent infection or upper respiratory symptoms. She was treated for sinusitis, however, a couple weeks ago, with symptom resolution. Her headache has improved somewhat with symptomatic treatment although she continues to experience significant vertigo as above. She does have gaze evoked and vertical nystagmus. No other obvious deficits on examination. She did have a CT of the head completed that was unremarkable, no hemorrhage or acute process. A CT venogram was unremarkable as well. No evidence of cerebral venous thrombosis. She also had a brain MRI completed, with and without contrast. The study is technically limited, however, due to artifact from her dental braces. I did independently review these images. No obvious evidence of acute process, no stroke or hemorrhage. No obvious abnormality within the brainstem. There is no evidence of Chiari malformation, no hydrocephalus. There is a single focus of FLAIR hyperintensity within the white matter of the right frontal lobe. She has no known history of previous clinical neurologic episodes. Allergies Allergy/AdvReac Type Severity Reaction Status Date / Time No Known Allergies Allergy Verified 09/20/24 14:56 Home Medications Medication Instructions Recorded Confirmed Type vit 168-iron 27 mg-folic 1 cap PO DAILY 09/03/23 09/21/24 History acid 800 mcg-omega3 235 mg capsule (One-A-Day -1) magnesium 1 tab PO DAILY 02/24/24 09/21/24 History breast pump #1 ea 06/10/24 09/20/24 Rx fluoxetine 10 mg tablet 10 mg PO DAILY #30 tabs 06/24/24 09/21/24 Rx ondansetron 4 mg disintegrating 4 mg PO Q8H #20 tabs 08/31/24 09/21/24 Rx tablet promethazine 25 mg tablet 25 mg PO Q6H PRN nausea and 09/20/24 09/21/24 Rx vomiting #14 tabs Patient History Medical History Asthma Childhood Social anxiety disorder Major depressive disorder with single episode Suicidal ideation Depression Migraines Surgical History No pertinent past surgical history Family History Father Diabetes Grandmother (Paternal) Diabetes Mother Lupus Denies family history of Ovarian cancer Prostate cancer Myocardial infarction Breast cancer Colorectal cancer Social History Smoking Status: Never smoker Do You Dip or Chew Tobacco: No; Hx Alcohol Use: No Hx Substance Use: No Preferred Language: Czech Communication Ability: Effective Hearing Ability: Normal Road Service Locksmith Required: No Beliefs That Will Affect Care: None marital status: Single marital status details: [place] (26) [phone] Current Living Situation: Family and Significant Other Current Living Situation Comment: Lives with FOB, son, 2 dogs, current occupational status: employed current occupation: [employer] Feels Safe at Home: Yes Diet: regular Diet Comment: GDM Assistive Devices: Glasses Review of Systems Constitutional: no fever and no chills Eyes: as per Subjective / HPI; no blind spots, no diplopia and no eye pain Ear, Nose, Mouth, Throat: no hearing loss Respiratory: no cough and no dyspnea Cardiovascular: no chest pain and no palpitations Gastrointestinal: no nausea and no vomiting Genitourinary: no dysuria Musculoskeletal: no myalgia Integumentary: no rash and no lesions Neurologic: as per Subjective / HPI, + gait abnormality, + dizziness and + headache(s); no localized weakness, no loss of sensation, no abnormal movements, no seizure-like activity and no syncope Psychiatric: no depression and no anxiety Hematologic / Lymphatic: no easy bleeding and no easy bruising Exam (Neuro) Constitutional: well developed and well nourished; no acute distress Eyes: normal visual reyes by confrontation, PERRL, EOM intact bilaterally and + nystagmus Neurologic: Oriented to:: Person, Place and Time Memory: Short Term Intact and Remote Intact Attention: Span Intact and Concentration Intact Speech Fluency: negative Dysarthria or Dysfluency Speech Aphasia: negative Aphasia Fund of Knowledge: Current Events, Past History and Vocabulary Cranial Nerves: Normal II, III, IV, , V, VII, VIII, IX, X, XI and XII Motor S trength: Normal Lower Extremities and Normal Upper Extremities Motor Tone: Normal Lower Extremities and Normal Upper Extremities Muscle Bulk/Involuntary Movements: No Involuntary Movements; negative Muscle Atrophy Sensation: Light Touch Intact, Pain/Temperature Intact, Vibration Intact and Proprioception I ntact Coordination: Normal and Limited Balance; negative Dysdiadochokinesia, Finger-Nose Abnormal or Heel-Saba Abnormal Deep Tendon Reflexes: Rt Triceps: 2+, Lt Triceps: 2+, Rt Biceps: 2+, Lt Biceps: 2+, Rt Brachioradialis: 2+, Lt Brachioradialis: 2+, Rt Patellar: 2+, Lt Patellar: 2+, Rt Ankle: 2+ and Lt Ankle: 2+ Special Tests: negative Babinski Present Gait: Normal Station and Gait Details: Patient has both gaze evoked nystagmus, and vertical nystagmus Results & Data Vital Signs (Past 12 Hours) Vital Signs Temp Pulse Resp BP Pulse Ox O2 Del Method 09/22/24 14:48 36.5 C 77 16 102/52 L 96 Room Air 09/22/24 12:11 36.6 C 85 16 101/62 95 Room Air 09/22/24 07:43 36.6 C 73 16 96/57 L 96 Room Air Laboratory Results Labs reviewed. WBC 14.30, hemoglobin 12.0, hematocrit 37.3, platelet count 359, sodium 142, potassium 3.9, BUN 14, creatinine 0.61, glucose 173, calcium 8.8, AST 32, ALT 63 Diagnostic Findings Electrocardiogram, normal sinus rhythm, 84 bpm Coding Level of Care Code 99453 INT INP/OBS CARE 3/75MIN Diagnoses Vertigo R42 Nystagmus H55.00 Clinically isolated syndrome of brainstem G37.89 Time Spent (min) 80 Comment Total time includes patient contact, chart review, counseling, note preparation
[2024-09-22] MEDS: OPTIRAY 320 125ml IV ONE (20:16)
--- NOTE | 2024-09-22 21:33 | CT Scan Report ---
Exam(s): CTA HEAD With Contrast IV Amt: 115 ml optiray 320 EXAM: CT Angiography Head With Intravenous Contrast CLINICAL HISTORY: Reason for exam: R/o dissection. TECHNIQUE: Axial computed tomographic angiography images of the head with intravenous contrast. CTDI is 9.65 mGy and DLP is 347.86 mGy-cm. Automated exposure control was utilized for the study. A dose lowering technique was utilized adhering to the principles of ALARA. MIP reconstructed images were created and reviewed. CONTRAST: Patient received 115 ml optiray 320 of IV contrast COMPARISON: MRI brain 09/22/24 FINDINGS: Right internal carotid artery: No acute findings. Intracranial segment is patent with no significant stenosis. No aneurysm. Right anterior cerebral artery: Unremarkable. No occlusion or significant stenosis. No aneurysm. Right middle cerebral artery: Unremarkable. No occlusion or significant stenosis. No aneurysm. Right posterior cerebral artery: Unremarkable. No occlusion or significant stenosis. No aneurysm. Right vertebral artery: Unremarkable as visualized. Left internal carotid artery: No acute findings. Intracranial segment is patent with no significant stenosis. No aneurysm. Left anterior cerebral artery: Unremarkable. No occlusion or significant stenosis. No aneurysm. Left middle cerebral artery: Unremarkable. No occlusion or significant stenosis. No aneurysm. Left posterior cerebral artery: Unremarkable. No occlusion or significant stenosis. No aneurysm. Left vertebral artery: Unremarkable as visualized. Basilar artery: Unremarkable. No occlusion or significant stenosis. No aneurysm. Sinuses: Retention cyst left maxillary sinus. IMPRESSION: Patent intracranial circulation. Electronically signed by: Antonina Brooke M.D. 09/22/24 21:32 PM
--- NOTE | 2024-09-22 21:34 | CT Scan Report ---
Exam(s): CTA NECK With Contrast IV Amt: 115 ml [id number] EXAM: CT Angiography Neck With Intravenous Contrast CLINICAL HISTORY: Reason for exam: R/o dissection. TECHNIQUE: Routine carotid CT angiography protocol was performed with intravenous contrast. NASCET criteria using the distal ICAs for comparison were used for evaluation of stenoses. CTDI is 9.65 mGy and DLP is 347.86 mGy-cm. Automated exposure control was utilized for the study. A dose lowering technique was utilized adhering to the principles of ALARA. MIP reconstructed images were created and reviewed. CONTRAST: Patient received 115 ml [id number] of IV contrast COMPARISON: None. FINDINGS: VASCULATURE: Right common carotid artery: Unremarkable. No occlusion or significant stenosis. No dissection. Right internal carotid artery: Unremarkable. Extracranial segment is patent with no occlusion or significant stenosis. No dissection. Right external carotid artery: Unremarkable. No occlusion. Right vertebral artery: Unremarkable. No occlusion or significant stenosis. No dissection. Left common carotid artery: Unremarkable. No occlusion or significant stenosis. No dissection. Left internal carotid artery: Unremarkable. Extracranial segment is patent with no occlusion or significant stenosis. No dissection. Left external carotid artery: Unremarkable. No occlusion. Left vertebral artery: Unremarkable. No occlusion or significant stenosis. No dissection. NECK: Bones/joints: Unremarkable. No acute fracture. Soft tissues: Unremarkable. Lung apices: Clear. CAROTID STENOSIS REFERENCE USING NASCET CRITERIA: % ICA stenosis = (1 - narrowest ICA diameter/diameter of distal cervical ICA) x 100. Mild - <50% stenosis. Moderate - 50-69% stenosis. Severe - 70-94% stenosis. Near occlusion - 95-99% stenosis. Occluded - 100% stenosis. IMPRESSION: No dissection, hemodynamically significant stenosis, or occlusion. Electronically signed by: Antonina Brooke M.D. 09/22/24 21:33 PM
[2024-09-22 23:34] LABS: C Reactive Protein 0.65 mg/dl (0-0.5)
[2024-09-23 06:52] LABS: Hematocrit (blood only) 34.9 % (37.0-47.0); Hemoglobin 11.4 g/dl (12.0-16.0); Mean Corpuscular Hemoglobin 25.8 pg (25.0-34.0); Mean Corpuscular Hgb Conc 32.7 g/dL (32.0-36.0); Mean Platelet Volume 10.4 fL (9.4-12.4); Platelet Count 338 K/uL (130-400); RDW Coefficient of Variation 16.9 % (11.5-14.5); RDW Standard Deviation 47.5 fL (36.4-46.3); Red Blood Count 4.42 M/uL (4.20-5.40); White Blood Count 17.29 K/ul (4.8-10.8)
[2024-09-23 07:09] LABS: Albumin Level 3.5 gm/dl (3.4-5.0); BUN Creatinine Ratio 23.6 (10-20); Bilirubin Direct 0.1 mg/dl (0-0.2); Bilirubin,Total 0.5 mg/dl (0.2-1.0); Calcium 8.7 mg/dl (8.6-10.3); Creatinine Clr Calc Pharmacy 126.9 ml/min
[2024-09-23 07:11] LABS: Basophils # (auto) 0.01 K/uL (0.00-0.20); Basophils % (auto) 0.1 %; Immature Granulocytes # (auto) 0.12 K/uL (0.01-0.20); Immature Granulocytes % (auto) 0.7 %; Lymphocytes # (auto) 1.32 K/uL (1.20-3.40); Lymphocytes % (auto) 7.6 %; Monocytes # (auto) 0.26 K/uL (0.11-0.59); Monocytes % (auto) 1.5 %; Neutrophils # (auto) 15.58 K/uL (1.40-6.50); Neutrophils % (auto) 90.1 %
--- NOTE | 2024-09-23 10:18 | Neurology Progress Note ---
Date of Service September 23, 2024 Assessment & Plan (1) Clinically isolated syndrome of brainstem: (2) Nystagmus: (3) Vertigo: Plan Probable clinically isolated syndrome of the brainstem occurring in the timeframe. She continues to have a mild degree of vertical nysta gmus, although improved compared with yesterday. No ophthalmoplegia. Lumbar puncture results pending. If no signs of an acute infectious process, would recommend Solu-Medrol 1000 mg IV x 1, followed with Medrol dose pack taper. Continue symptomatic management of vertigo, meclizine or diazepam as necessary. Results of MS panel will take at least 1 week. Please see yesterday's consultation report for additional details. Patient may follow-up with me in neurology clinic in 2 to 3 weeks after discharge. Admission and Anticipated Discharge Date Admission Date: September 21, 2024 Subjective Follow-up regarding vertigo I rounded on this patient earlier this morning, around 7 AM. She reports some improvement in her vertigo, the sensation is much less intense. Her head pressure is improved as well. She denies any double vision, no significant nausea, no weakness. CTA of the head and neck were completed last night. No abnormalities identified. No evidence of dissection or occlusion. Lumbar puncture is pending. Results & Data Vital Signs (Past 12 Hours) Vital Signs Temp Pulse Resp BP Pulse Ox O2 Del Method 09/23/24 07:58 36.7 C 55 L 20 105/62 96 Room Air Exam (Neuro) Eyes: normal visual reyes by confrontation, PERRL, EOM intact bilaterally and + nystagmus Neurologic: Oriented to:: Person, Place and Time Memory: Short Term Intact and Remote Intact Attention: Span Intact and Concentration Intact Speech Fluency: negative Dysarthria or Dysfluency Speech Aphasia: negative Aphasia Fund of Knowledge: Current Events, Past History and Vocabulary Cranial Nerves: Normal II, III, IV, , V, VII, VIII, IX, X, XI and XII Motor Strength: Normal Lower Extremities and Normal Upper Extremities Muscle Bulk/Involuntary Movements: No Involuntary Movements Sensation: Light Touch Intact and Proprioception Intact Coordination: negative Finger-Nose Abnormal Coding Level of Care Code 26052 SUB INP/OBS CARE 2/35MIN Diagnoses Clinically isolated syndrome of brainstem G37.89 Nystagmus H55.00 Vertigo R42 Time Spent (min) 35 Comment Total time includes patient contact, chart review, counseling, note preparation
--- NOTE | 2024-09-23 10:30 | Hospitalist Progress Note ---
Date of Service September 23, 2024 Assessment & Plan (1) Acute labyrinthitis: Plan: Kavita is a 29-year-old female recently with delivery 3 weeks ago C/B epidural which reportedly took 3 separate attempts with some difficulty placing but who subsequently did well who presents for headache, severe vertigo, nausea for 3 days. She reports that between delivery and her presentation she did not have any headache and was generally doing well. She has had recent development of a cold sore at her left lip in the last 24-48 hours. Differential includes labyrinthitis/, viral meningitis, and late onset of post epidural headache. She was without toxic appearance/fever/nuchal rigidity on admission with low suspicion for bacterial meningitis. Vertigo, headache, vision change Suspect isolated inflammatory condition versus MS versus viral - Neuro consulted. She recommendations - CTA w/o evidence of dissection - MRI naf on initial read, ?frontal lobe abnormality on FLAIR images on Neuro review - Had cold sore outbreak 09/21-09/22 --> started on acyclovir. - 09/23 headache and sx signifiantly improving. - LP without elevation in protein, white blood cell count, or red blood cell count. No evidence of meningitis on LP MS and extended serologies sent, these will not be back for several days Methylprednisolone 1000 mg IV x 1 ordered, followed by Medrol dose pack Post LP protocol If vertiginous symptoms recur/worsen may use meclizine which has been ordered. If persistent/worsening then may add Valium 5 mg x 1. Clinically progressing at time of bedside visit. Leukocytosis - Initially mild. Uptrending in the setting of steroid use. No left shift. Afebrile. Clinically improving without abx. Follow fever curve. No new symptoms Transaminitis resolved with fluids, supportive care DVT prophylaxis: Ambulate/SCDs. Chemical prophylaxis held for LP Diet: N.p.o. at midnight. Advance to regular post LP. CODE STATUS: Full code (2) normal course: (3) Depression: Admission and Anticipated Discharge Date Admission Date: September 21, 2024 Subjective Headache improving. Does continue to have some intermittent vertigo. Ear pressure improving. Lip lesion is less painful today. No fevers chills or sweats overnight. No neck tenderness or nuchal rigidity. On morning assessment is still pending LP. No new symptoms. Reviewed risk/benefits of LP at bedside no additional questions. Her blurry vision has improved and is almost completely back to normal. Physical Exam Physical Exam: General: Appears fatigued, ill but nontoxic. HEENT/neuro:atraumatic, normocephalic. Visual acuity subjectively improved, pupils equal and reactive to light. Nystagmus remains present on far lateral gaze, some vertical nystagmus also present. Improved compared to prior and extinguishes with held gaze. Insurance Specialist strength, hip flexion, ankle dorsiflexion/plantarflexion 5/5 bilaterally Pulm: CTAB A&P. -wheezes, -rales, -rhonchi. Symmetrical chest rise. No increased work of breathing. No respiratory distress. Cardiac: RRR, -mrg. Radial pulses intact and symmetrical. Abdominal: Nontender, nondistended, soft. BS present. Results & Data Results & Data Vital Signs (Past 12 Hours) Vital Signs Temp Pulse Resp BP Pulse Ox O2 Del Method 09/23/24 07:58 36.7 C 55 L 20 105/62 96 Room Air PG Care Time/CCT Total # of Minutes Spent Total Time Spent with Patient: Total time spent is greater than 50% in coordination of care (as documented) at patient's floor/unit and/or counseling patient: Coding Level of Care Code 38683 SUB INP/OBS CARE 3/50MIN Diagnoses Acute labyrinthitis H83.09 normal course Z39.2 Depression F32.A
[2024-09-23 10:34] LABS: Total Protein CSF 33.2 mg/dl (15-45)
[2024-09-23 10:39] LABS: Appearance CSF Clear; CSF Count Tube # 3; CSF Xanthrochromic No xanthochromia; Color CSF Colorless; Red Blood Cell CSF Manual 0 (0); White Blood Cell CSF Manual 2 (0-5)
[2024-09-23] MEDS ORDERED: methylPREDNISolone 10 mg/mL (For Ped Dose < 7mg) IV ONE (12:58)
--- NOTE | 2024-09-23 14:15 | Fluoroscopy Report ---
LUMBAR PUNCTURE UNDER FLUOROSCOPY CLINICAL HISTORY: Possible meningitis; vertigo PROCEDURE: Procedure and risks were explained. Informed consent was obtained. A final timeout was com pleted. The patient was placed prone on the fluoroscopic exam table. The lower lumbar region was prep ped and draped in sterile fashion. 1% lidocaine was utilized for skin anesthesia. Utilizing fluoroscopic guidance, a 22-gauge Sprotte spinal needle was advanced into the intrathecal s pace at the L2-3 disc space level. Fluoroscopic spot images were obtained. Approximately 8 mL of patricia r CSF fluid was removed and sent to lab for analysis. The needle was removed and Band-Aid applied. Th e patient tolerated the procedure well. Vital signs will be monitored postprocedure. Fluoroscopy time 18 seconds. Study dosed 9.28 mGy. IMPRESSION: Lumbar puncture as above. Performed, dictated, and signed by Paul Rivera PA-C; to be co-signed by Dr. Rosalio Harvey. Electronically signed by: Rosalio Harvey M.D. 09/23/2024 2:24 PM
[2024-09-23] MEDS: methylPREDNISolone 1,000 MG in NSS 250 ML IV ONE (14:30)
[2024-09-23] MEDS: valACYclovir HCL 500 MG TABLET PO SCH (21:18)
[2024-09-24] MEDS: methylPREDNISolone 4 MG TAB PO SCH ×2 (06:13→12:09)
[2024-09-24 07:44] LABS: Basophils # (auto) 0.01 K/uL (0.00-0.20); Basophils % (auto) 0.1 %; Hemoglobin 11.3 g/dl (12.0-16.0); Immature Granulocytes % (auto) 0.8 %; Lymphocytes # (auto) 1.14 K/uL (1.20-3.40); Lymphocytes % (auto) 8.9 %; Mean Corpuscular Hgb Conc 32.3 g/dL (32.0-36.0); Mean Corpuscular Volume 80.5 fL (80.0-100.0); Mean Platelet Volume 10.8 fL (9.4-12.4); Monocytes # (auto) 0.38 K/uL (0.11-0.59); Neutrophils # (auto) 11.24 K/uL (1.40-6.50); Neutrophils % (auto) 87.2 %; Platelet Count 334 K/uL (130-400); RDW Coefficient of Variation 16.9 % (11.5-14.5); Red Blood Count 4.35 M/uL (4.20-5.40); White Blood Count 12.87 K/ul (4.8-10.8)
[2024-09-24 07:48] VITALS: BP 109/65; PULSE 50; RESP 19; TEMP 98.2; O2SAT 99
--- NOTE | 2024-09-24 07:55 | Discharge Summary ---
Discharge Summary Date of Service September 24, 2024 Principal Dx & Hospital Course #1 = Principal Diagnosis (1) Acute labyrinthitis: Kavita is a 29-year-old female recently with delivery 3 weeks ago C/B epidural which reportedly took 3 separate attempts with some difficulty placing but who subsequently did well who presents for headache, severe vertigo, nausea for 3 days. She reports that between delivery and her presentation she did not have any headache and was generally doing well. She has had recent development of a cold sore at her left lip in the last 24-48 hours. Differential includes labyrinthitis/, viral meningitis, and late onset of post epidural headache. She was without toxic appearance/fever/nuchal rigidity on admission with low suspicion for bacterial meningitis. Evaluation was suspicious for primary inflammatory disease, inflammatory state versus possible MS. To do as outpatient: Complete Medrol dose taper Follow-up on LP serologies including MS send outs Follow-up with neuro Follow-up with PCP Complete Medrol dose pack Risks/benefits of breast-feeding while on methylprednisolone were discussed. Category C, with generally low expression in breastmilk. Generally considered safe. Low but possible theoretic risk of steroid exposure in the infant including impaired growth or disruption of endogenous steroid production which was discussed. Discussed with patient that she may breast-feed however if high concern for exposure is also reasonable to pump and dump and then resume feeding 24-36 hours after her last dose of Medrol Dosepak Vertigo, headache, vision change Suspect isolated inflammatory condition versus MS - CTAhead/neck w/o evidence of dissection - MRI naf on initial read, ?frontal lobe abnormality on FLAIR images on Neuro review. This did not correlate with her symptoms - Had cold sore outbreak 09/21-09/22 --> started on acyclovir. No subsequent evidence of viral meningitis, completed a short course of antivirals with improvement in her cold sore - LP without elevation in protein, white blood cell count, or red blood cell count. No evidence of meningitis on LP MS and extended serologies sent, these will not be back for several days Methylprednisolone 1000 mg IV x 1 ordered. She is doing well and symptoms were improving with some residual vertigo at time of discharge. She did not have any ongoing visual changes or focal neurologic deficits Meclizine as needed was prescribed for vertigo. Return home was discussed with which she was comfortable Medrol dose pack taper prescribed on discharge Leukocytosis - Initially mild. Uptrending in the setting of steroid use. No left shift. Afebrile. Clinically improving without abx. No fevers. No progressive symptoms or infectious symptoms. Downtrended, slightly elevated while remaining on high- dose steroids Transaminitis resolved with fluids, supportive care (2) normal course: (3) Depression: Admission HPI Per Admitting Provider 29-year-old white female who is 3 weeks . She developed vertigo with nausea and vomiting 2 days ago without associated trauma. She was treated in the ED and head CT scan and head venogram CT scan are negative. Liver function enzymes are mildly elevated. EKG is normal. This appears to be acute labyrinthitis causing the vertigo and she will be treated accordingly. She is placed in observation for further management Discharge Exam General: Appears fatigued, ill but nontoxic. HEENT/neuro:atraumatic, normocephalic. Visual acuity subjectively improved, pupils equal and reactive to light. Nystagmus remains present on far left lateral gaze, improved on right lateral gaze, some vertical nystagmus also present but greatly improved from prior. Traveling Phlebotomist strength, hip flexion, ankle dorsiflexion/plantarflexion 5/5 bilaterally Pulm: CTAB A&P. -wheezes, -rales, -rhonchi. Symmetrical chest rise. No increased work of breathing. No respiratory distress. Cardiac: RRR, -mrg. Bradycardic on initial assessment but with good chronotropic response and heart rate rises to normal range with movement. BP normal. Radial pulses intact and symmetrical. Abdominal: Nontender, nondistended, soft. BS present. Discharge Plan Discharge Items Patient Disposition: Home - Self-Care Reason For Visit: VERTIGO, NAUSEA, VOMITING Discharge Diagnosis: Post Inflammatory condition versus MS versus vertigo Activity: Resume your previous activity Non-emergency contact: Primary Care Provider and Neurologist Call non-emergency contact if: you have any medication questions, your symptoms worsen and your pain is not controlled Follow-up/Referrals: Alejandra Bourne CRNP [Primary Care Provider] - Tommy Holt MD [Physician] - Diet: Regular Addtl Attending Provider Instructions: You are seen in the hospital for a headache, vertigo, and vision change. There was a broad differential for this including multiple sclerosis, meningitis, and inflammatory conditions. Your MRI on initial read did not show any abnormalities however on close reviewed by neurology there was suspicion for a possible frontal lobe inflammatory abnormality on 1 particular view. This can be due to inflammatory states or conditions like MS. You had a lumbar puncture to evaluate for meningitis. This did not show evidence of viral or bacterial meningitis. You did have a small cold sore outbreak during admission and were treated with acyclovir which was then switched to your normal valacyclovir oral pills. You were given 1000 mg of methylprednisolone for suspected inflammatory cause of your symptoms. You were improving by time of discharge. You have been pre scribed a Medrol Dosepak. Please continue taking Medrol Dosepak as noted below and follow-up with your PCP and neurology for further reassessments. Methylprednisolone is considered Category C, and small amounts can be present in breastmilk. The amount is small and is generally considered safe for ; however steroids do have the potential to suppress growth and interfere with the bodys own steroid production. If you are very concerned about your avoiding any exposure to steroids, you may pump/dump while on methylprednisolone and temporarily use formula until your taper is complete. If you develop any new or worsening symptoms including fever, chills, sweats, chest pain, chest pressure, difficulty breathing, uncontrolled nausea/vomiting, rash, wheezing, passing out or nearly passing out, bleeding, black/bloody bowel movements, or other new or concerning symptoms please call your primary care physician, or call 911 for re-evaluation in the emergency department if you are very concerned. Pending Studies at Discharge: No Stand-Alone Forms: [facility] [employer], Smoking Cessation Medications and DC Order Prescriptions: New meclizine 12.5 mg Tablet 12.5 mg PO TID PRN (Reason: dizziness) Qty: 30 0RF methylprednisolone 4 mg tablet See Rx Instructions .ROUTE .COMPLEX Qty: 15 0RF Rx Instructions: Day-1 4mg(BREAK), 4mg(ELLY), 4mg(SUP), 8mg(HS) Day-2 4mg(BREAK), 4mg(ELLY), 4mg(SUP), 4mg(HS) Day-3 4mg(BREAK), 4mg(ELLY), 4mg(HS) Day-4 4mg(BREAK), 4mg(HS) Day-5 4mg(BREAK) Continued (DME) breast pump Device See Rx Instructions miscellaneous .MEDSUPPLY Qty: 1 0RF Rx Instructions: As directed One-A-Day -1 27 mg iron- 800 mcg-235 mg capsule 1 cap PO DAILY Protocol: TPA for Pulmonary Embolism Condition: Total Dose: Dose/Route: 100 Instruction: mg Condition: Infuse over: Dose/Route: 2 Instruction: hours Protocol Text: NURSING: Stop infusion immediately if abnormal bleeding, bruising, petichiae, or decline in neurologic status Flush TPA tubing with 50mL NSS after TPA vial empty promethazine 25 mg tablet 25 mg PO Q6H PRN (Reason: nausea and vomiting) Qty: 14 1RF magnesium Tablet 1 tab PO DAILY Rx Instructions: 500mg ondansetron 4 mg tablet,disintegrating 4 mg PO Q8H Qty: 20 2RF fluoxetine 10 mg tablet 10 mg PO DAILY Qty: 30 2RF Discharge Orders: Discharge Order (Routine); Ordered 09/24/24 Ordered By: Luke Monroe Admission Data Admit Date/Time: 09/23/24 10:32 Attending Provider: Luke Monroe Admit Provider: Peter Burton Primary Care Provider: Alejandra Bourne Other Providers: Peter Burton; Tommy Holt Hospital Stay Data Consultations 09/21/24 17:02 ED Decision to Admit Stat 09/23/24 09:00 Consult Neurology Routine Diagnostic Imagining Performed 09/21/24 15:07 CT head venogram w con Stat CT head/brain wo con Stat 09/22/24 10:35 MRI Brain [MR brain wo/w con] Urgent 09/22/24 19:20 CTA head w con [CT angio head w con] Urgent CTA neck with con [CT angio neck with con] Urgent 09/23/24 09:30 IR lumbar puncture diagnostic Routine Discharge Instructions Given to Patient (Per Discharging Provider) You are seen in the hospital for a headache, vertigo, and vision change. There was a broad differential for this including multiple sclerosis, meningitis, and inflammatory conditions. Your MRI on initial read did not show any abnormalities however on close reviewed by neurology there was suspicion for a possible frontal lobe inflammatory abnormality on 1 particular view. This can be due to inflammatory states or conditions like MS. You had a lumbar puncture to evaluate for meningitis. This did not show evidence of viral or bacterial meningitis. You did have a small cold sore outbreak during admission and were treated with acyclovir which was then switched to your normal valacyclovir oral pills. You were given 1000 mg of methylprednisolone for suspected inflammatory cause of your symptoms. You were improving by time of discharge. You have been prescribed a Medrol Dosepak. Please continue taking Medrol Dosepak as noted below and follow-up with your PCP and neurology for further reassessments. Methylprednisolone is considered Category C, and small amounts can be present in breastmilk. The amount is small and is generally considered safe for ; however steroids do have the potential to suppress growth and interfere with the bodys own steroid production. If you are very concerned about your infant avoiding any exposure to steroids, you may pump/dump while on methylprednisolone and temporarily use formula until your taper is complete. If you develop any new or worsening symptoms including fever, chills, sweats, chest pain, chest pressure, difficulty breathing, uncontrolled nausea/vomiting, rash, wheezing, passing out or nearly passing out, bleeding, black/bloody bowel movements, or other new or concerning symptoms please call your primary care physician, or call 911 for re-evaluation in the emergency department if you are very concerned. Total Time Total Time Spent Total Time Spent (In Minutes): Time spend day of discharge 45 minutes including direct patient care, documentation, review of labs and images, and coordination of care. Coding Level of Care Code 41909 INP/OBS DISCH >30 MIN Diagnoses Acute labyrinthitis H83.09 normal course Z39.2 Depression F32.A
[2024-09-24 08:08] LABS: BUN Creatinine Ratio 30.2 (10-20); Calcium 8.6 mg/dl (8.6-10.3); Creatinine Clr Calc Pharmacy 131.7 ml/min; Potassium 3.9 mmol/L (3.5-5.1)
[2024-09-24] MEDS ORDERED: methylPREDNISolone 4 MG TAB, 6 DAY TAPER PO SCH (09:00)
[2024-09-25] MEDS ORDERED: methylPREDNISolone 4 MG TAB PO SCH ×2 (07:00→21:00)
[2024-09-26] MEDS ORDERED: methylPREDNISolone 4 MG TAB PO SCH (07:00)
[2024-09-26 15:43] LABS: Angiotensin Converting Enzyme 39 U/L (9-67); Anti Nuclear Antibody Screen NEGATIVE (NEGATIVE)
[2024-09-26 21:26] LABS: CSF, LDH 13 U/L (<=25); Lyme DNA PCR CSF or Synovial Not Detected (Not Detected); Lyme DNA Source CSF
[2024-09-27] MEDS ORDERED: methylPREDNISolone 4 MG TAB PO SCH (07:00)
[2024-09-28] MEDS ORDERED: methylPREDNISolone 4 MG TAB PO SCH (07:00)
[2024-09-29] MEDS ORDERED: methylPREDNISolone 4 MG TAB PO SCH (07:00)
== END 2024-09-24 12:55 | disposition home or self-care (01) | DRG 776 ==
LOC: 3N 10:54 → ED 10:54 → SUATTDRO 17:02 → 3N 18:23